=== PATIENT | male | born 1965 | race Two or more races ===

== ENCOUNTER 2019-12-08 11:55 | Inpatient (IN) | payer MEDICAID ==
[~2019-12-08] VITALS: Ht 175.3 cm; Wt 137.0 kg
[2019-12-08] VITALS (12 sets, daily range): BP systolic 91–205; BP diastolic 30–108
--- NOTE | 2019-12-08 11:55 | NUR ---
ED Nurse Note: Pt arrived with RA 26 due to SOB from snf, pt was on 15L NR saturating at 88%. Pt appears red and show signs of acute distress. IV line established patent and intact. Blood specimen collected. sent to lab.
--- NOTE | 2019-12-08 11:55 | NUR ---
ED Nurse Note: Pt given 10 of etomidate and 100 succ per ERMD. PT was intubated. RT at bedside
--- NOTE | 2019-12-08 11:56 | NUR ---
ED Nurse Note: Vent setting at 20 Rate, 650 Tv, 100 FiO2, peep of 5. 23 at lip; 8.0
--- NOTE | 2019-12-08 12:10 | NUR ---
ED Nurse Note: new Rodriguez inserted, patent and draining. pt has multiple wounds. one on left and right upper lateral thigh and perineal area. photos taken. wound care photo uploaded
--- NOTE | 2019-12-08 12:36 | NUR ---
ED Nurse Note: cre, vre, and mrsa swabs sent to lab.
--- NOTE | 2019-12-08 12:36 | NUR ---
ED Nurse Note: Pt was given 2 L normal saline per TO by VIDA
[2019-12-08 13:00] LABS: APPEARANCE,URINE CLOUDY; BILIRUBIN, URINE 1+ (NEGATIVE); COLOR,URINE BROWN; GLUCOSE, URINE (UA) 2+ (NEGATIVE); KETONES,URINE 3+ (NEGATIVE); LEUKOCYTE ESTERASE ,URINE 3+ (NEGATIVE); NITRITE,URINE NEGATIVE (NEGATIVE); PH,URINE 5 (4.5-8.0); PROTEIN,URINE 3+ (NEGATIVE); UROBILINOGEN,URINE 4 MG/DL (0.0-1.0)
[2019-12-08] MEDS ORDERED: Insulin Human Regular 100units/ml 3ml IV ONE (13:00)
[2019-12-08 13:02] LABS: HEMATOCRIT 50.5 % (42.0-52.0); HEMOGLOBIN 17.2 G/DL (14.2-18.0); MEAN CORPUSCULAR VOLUME 82 FL (80-99); PLATELET COUNT 299 K/UL (150-450); RED BLOOD COUNT 6.13 M/UL (4.70-6.10); RED CELL DISTRIBUTION WIDTH 13.2 % (11.6-14.8); WHITE BLOOD COUNT 18.2 K/UL (4.8-10.8)
[2019-12-08 13:09] LABS: ANION GAP 20 mmol/L (5-15); BLOOD UREA NITROGEN 23 mg/dL (7-18); CARBON DIOXIDE 19 MMOL/L (21-32); CHLORIDE 89 MMOL/L (98-107); CREATININE 2.3 MG/DL (0.55-1.30); POTASSIUM 5.3 MMOL/L (3.5-5.1); SODIUM 128 MMOL/L (136-145)
[2019-12-08] MEDS ORDERED: VITAMIN C500 M1 ORAL (13:09)
[2019-12-08] MEDS ORDERED: NEXIUM20 M1 ORAL (13:09)
[2019-12-08] MEDS ORDERED: MULTIVITAMINS1 EAC2 ORAL (13:09)
[2019-12-08] MEDS ORDERED: ELIQUIS2.5 MG PO (13:09)
[2019-12-08] MEDS ORDERED: ALLOPURINOL100 M1 ORAL (13:09)
[2019-12-08] MEDS ORDERED: SINGULAIR10 MG ORAL (13:09)
[2019-12-08] MEDS ORDERED: BISACODYL10 M1 RC (13:09)
[2019-12-08] MEDS ORDERED: MAGNESIUM CITR296 M1 PO (13:09)
[2019-12-08] MEDS ORDERED: BACLOFEN10 MG ORAL (13:09)
[2019-12-08] MEDS ORDERED: GABAPENTIN100 MG ORAL (13:21)
[2019-12-08 13:22] LABS: ALANINE AMINOTRANSFERASE 37 U/L (12-78); ALBUMIN 2.5 G/DL (3.4-5.0); ALBUMIN/GLOBULIN RATIO 0.4 (1.0-2.7); ALKALINE PHOSPHATASE 164 U/L (46-116); ASPARTATE AMINO TRANSFERASE 44 U/L (15-37); BILIRUBIN,TOTAL 0.6 MG/DL (0.2-1.0); CKMB 2.7 NG/ML (0.0-3.6); CREATINE KINASE 145 U/L (26-308)
[2019-12-08] MEDS ORDERED: cefTRIAXone 1 GM in NS 55 ML IVPB ONE (13:30)
[2019-12-08] MEDS ORDERED: Vancomycin 1.5gm/NS Premix 275 ML IVPB ONE (13:30)
[2019-12-08] MEDS ORDERED: Enoxaparin 120 mg inj SUBQ ONE (13:30)
--- NOTE | 2019-12-08 14:00 | NUR ---
ED Nurse Note: DARIANAD aware of pt BS of 355. waiting for further orders
--- NOTE | 2019-12-08 14:15 | NUR ---
ED Nurse Note: Informed ermd and RT that pt O2 sat sitting at 88% on mechanical ventilator
--- NOTE | 2019-12-08 14:20 | NUR ---
ED Nurse Note: Lactic acid reflex sent
--- NOTE | 2019-12-08 14:21 | NUR ---
ED Nurse Note: PEEP set to 10 by RT per ERMD order
--- NOTE | 2019-12-08 14:44 | Emergency Room Report ---
History of Present Illness General Chief Complaint: Dyspnea/Respdistress Source: EMS Present Illness HPI Patient presents from nursing facility with reports of shortness of breath Upon arrival the patient is in respiratory distress and impending failure Also appears cyanotic The history of present illness is significantly limited patient himself is nonverbal again in respiratory distress impending failure and required initial airway intubation upon arrival Unknown regarding the duration of illness unknown regarding fevers Patient is from nursing facility raising concern and question of covid-19 infection Allergies: Coded Allergies: No Known Allergies (Unverified , 12/08/19) COVID-19 Screening Contact w/high risk pt: Yes Recent Travel to affected area: No Experienced COVID-19 symptoms?: Yes COVID-19 symptoms experienced: Shortness of Breath COVID-19 Testing performed PERSONAL BANKING ASSISTANT: Yes COVID-19 Screening: Positive COVID-19 COVID-19 Testing Source: [facility] [facility] Patient History Limited by: medical condition Reviewed Nursing Documentation: PMH: Agreed; PSxH: Agreed Review of Systems All Other Systems: limited - Other than the ones mentioned in the history of present illness all others are reviewed however they do stay limited due to the patient's mental status Physical Exam Vital Signs Date Time Temp Pulse Resp B/P (MAP) Pulse Ox O2 Delivery O2 Flow Rate FiO2 12/08/19 11:50 97.5 132 35 205/108 (140) 87 Non-Rebreather 15.0 12/08/19 12:29 100 Sp02 EP Interpretation: reviewed, abnormal - 87% on nonrebreather which is a low oxygenation patient required airway intubation, 100% oxygenation is saturating at 98% which is normal General Appearance: severe distress - Tachypneic, respiratory failure cyanotic Head: normocephalic, atraumatic Eyes: bilateral eye PERRL, bilateral eye EOMI ENT: no angioedema, dry mucus membranes Neck: supple Respiratory: other - Retractions bilaterally decreased breath sounds, and respiratory failure Cardiovascular #1: tachycardia Gastrointestinal: other - Surgical scar noted in the lower abdomen patient present in extreme status and abdominal exam is difficult to obtain fullys however does not appear distended Musculoskeletal: other - Patient appears to be in critical status, appears to have lower extremity paralysis Neurologic: other - Some response to physical stimuli however presents in respiratory distress impending failure neurological exam is difficult to obtain Skin: other - Cyanotic Lymphatic: no adenopathy Procedures Critical Care Time Critical Care Time 70 minutes for multiple evaluations initial clinical presentation concerning for respiratory failure and possible not including any procedural time Intubation Intubation : Consent: Emergent Intubation Method: orotracheal Tube Size (cm): 8.5 Medications: Etomidate, Succinylcholine Breath Sounds after Intubation: equal Intubation Complications: no complications Attempts: One Patient Tolerated: Well Complications: None Medical Decision Making Diagnostic Impression: Primary Impression: Respiratory failure Additional Impressions: COVID-19 elevated toponin ER Course Patient is a fairly complex patient with multiple differential to consideration including but not limited to cardiac cardiopulmonary and vascular emergencies Given the patient's presentation and x-ray imaging Patient has high suspicion for covid-19 Broad-spectrum antibiotics initiated patient has airway intubation Performed Has significant electrolyte abnormalities being addressed Troponin level also elevated and patient was given Dose of Lovenox upon arrival and admitted to ICU in critical condition Labs Test 12/08/19 11:50 12/08/19 13:05 White Blood Count 18.2 K/UL (4.8-10.8) Red Blood Count 6.13 M/UL (4.70-6.10) Hemoglobin 17.2 G/DL (14.2-18.0) Hematocrit 50.5 % (42.0-52.0) Mean Corpuscular Volume 82 FL (80-99) Mean Corpuscular Hemoglobin 28.1 PG (27.0-31.0) Mean Corpuscular Hemoglobin Concent 34.1 G/DL (32.0-36.0) Red Cell Distribution Width 13.2 % (11.6-14.8) Platelet Count 299 K/UL (150-450) Mean Platelet Volume 5.7 FL (6.5-10.1) Neutrophils (%) (Auto) % (45.0-75.0) Lymphocytes (%) (Auto) % (20.0-45.0) Monocytes (%) (Auto) % (1.0-10.0) Eosinophils (%) (Auto) % (0.0-3.0) Basophils (%) (Auto) % (0.0-2.0) Differential Total Cells Counted 100 Neutrophils % (Manual) 86 % (45-75) Lymphocytes % (Manual) 6 % (20-45) Monocytes % (Manual) 8 % (1-10) Eosinophils % (Manual) 0 % (0-3) Basophils % (Manual) 0 % (0-2) Band Neutrophils 0 % (0-8) Platelet Estimate Adequate Platelet Morphology Normal Red Blood Cell Morphology Normal Prothrombin Time 11.4 SEC (9.30-11.50) Prothromb Time International Ratio 1.0 (0.9-1.1) Activated Partial Thromboplast Time 32 SEC (23-33) Urine Color Brown Urine Appearance Cloudy Urine pH 5 (4.5-8.0) Urine Specific [place] 1.025 (1.005-1.035) Urine Protein 3+ (NEGATIVE) Urine Glucose (UA) 2+ (NEGATIVE) Urine Ketones 3+ (NEGATIVE) Urine Blood 2+ (NEGATIVE) Urine Nitrite Negative (NEGATIVE) Urine Bilirubin 1+ (NEGATIVE) Urine Ictotest Negative (NEGATIVE) Urine Urobilinogen 4 MG/DL (0.0-1.0) Urine Leukocyte Esterase 3+ (NEGATIVE) Urine RBC 2-4 /HPF (0 - 0) Urine WBC 15-20 /HPF (0 - 0) Urine Squamous Epithelial Cells None /LPF (NONE/OCC) Urine Bacteria Many /HPF (NONE) Sodium Level 128 MMOL/L (136-145) Potassium Level 5.3 MMOL/L (3.5-5.1) Chloride Level 89 MMOL/L (98-107) Carbon Dioxide Level 19 MMOL/L (21-32) Anion Gap 20 mmol/L (5-15) Blood Urea Nitrogen 23 mg/dL (7-18) Creatinine 2.3 MG/DL (0.55-1.30) Estimat Glomerular Filtration Rate 30.0 mL/min (>60) Glucose Level 455 MG/DL (74-106) Lactic Acid Level 3.70 mmol/L (0.4-2.0) Calcium Level 9.0 MG/DL (8.5-10.1) Total Bilirubin 0.6 MG/DL (0.2-1.0) Aspartate Amino Transf (AST/SGOT) 44 U/L (15-37) Alanine Aminotransferase (ALT/SGPT) 37 U/L (12-78) Alkaline Phosphatase 164 U/L (46-116) Total Creatine Kinase 145 U/L (26-308) Creatine Kinase MB 2.7 NG/ML (0.0-3.6) Creatine Kinase MB Relative Index 1.8 Troponin I 0.213 ng/mL (0.000-0.056) Pro-B-Type Natriuretic Peptide 6155 pg/mL (0-125) Total Protein 8.5 G/DL (6.4-8.2) Albumin 2.5 G/DL (3.4-5.0) Globulin 6.0 g/dL Albumin/Globulin Ratio 0.4 (1.0-2.7) Lipase 125 U/L (73-393) Arterial Blood pH 7.183 (7.350-7.450) Arterial Blood Partial Pressure CO2 39.1 mmHg (35.0-45.0) Arterial Blood Partial Pressure O2 52.8 mmHg (75.0-100.0) Arterial Blood HCO3 14.4 mmol/L (22.0-26.0) Arterial Blood Oxygen Saturation 84.9 % (95-100) Arterial Blood Base Excess -13.2 (-2-2) Colby Test Positive Rhythm Strip Diag. Results EP Interpretation: yes Rate: 120 Rhythm: no PVC's, no ectopy, other - Sinus tach Chest X-Ray Diagnostic Results Chest X-Ray Diagnostic Results : Chest X-Ray Ordered: Yes # of Views/Limited/Complete: 1 View Indication: Shortness of Breath EP Interpretation: Yes Interpretation: no pneumothorax, other - ET tube appropriate position, bilateral infiltrates, bilateral small effusions Impression: Other - Bilateral patchy infiltrate Electronically Signed by: Jose Eduardo Nuñez DO Last Vital Signs Date Time Temp Pulse Resp B/P (MAP) Pulse Ox O2 Delivery O2 Flow Rate FiO2 12/08/19 12:29 97.9 118 20 112/56 94 Mechanical Ventilator 15.0 100 Status: improved Disposition: ADMITTED INPATIENT Condition: Critical Referrals: ANYA CHRISTIAN (PCP) Jose Eduardo Nuñez DO Dec 08, 2019 14:44
--- NOTE | 2019-12-08 14:55 | NUR ---
ED Nurse Note: Pt began fighting vent, pt placed on diprivan per ermd
--- NOTE | 2019-12-08 15:00 | NUR ---
ED Nurse Note: informed ermd of pt low BP. pt started on levophed. Addendum: 12/08/19 at 1552 by PDELEON ED Nurse Note: informed ermd of pt low BP. pt started on levophed. please view iv spreadsheet
--- NOTE | 2019-12-08 15:05 | NUR ---
ED Nurse Note: Pt was suctioned
[2019-12-08] MEDS: propofoL 1,000mg/100ml 100 ML IV SCH (15:13)
--- NOTE | 2019-12-08 15:53 | NUR ---
ED Nurse Note: Pt began fighting vent, pt placed on diprivan per ermd. please view iv spread sheet
[2019-12-08] MEDS ORDERED: Albuterol/Ipratropium 3ml neb IN-LINE ONE (16:15)
--- NOTE | 2019-12-08 16:27 | Diagnostic Imaging Report ---
Indication: Chest pain Technique: One view of the chest Comparison: none Findings: There is an endotracheal tube in place, tip projecting approximately 7 cm above the sadia in good position. Extensive bilateral infiltrates versus edema, left greater than right, are noted. Atelectatic bands are seen at the right lung base. No definite effusions Less is difficult to assess, possibly enlarged. Impression: Satisfactory endotracheal intubation Extensive bilateral infiltrates versus edema, left greater than right Right basilar atelectatic changes
--- NOTE | 2019-12-08 16:44 | NUR ---
ED Nurse Note: RT at bedside giving breathing treatment
--- NOTE | 2019-12-08 18:40 | NUR ---
ED Nurse Note: called dr. rojo informed him of pt saturation of 84% on mechanical vent with peep of 5 and FiO2 of 100%.
--- NOTE | 2019-12-08 18:41 | NUR ---
ED Nurse Note: RT obtained ABG repeat per dr. rojo
--- NOTE | 2019-12-08 18:44 | NUR ---
ED Nurse Note: called XRAY for stat chest xray per dr. alia CAPPS.
--- NOTE | 2019-12-08 18:55 | NUR ---
ED Nurse Note: Tidal volume increased to [address] rojo verbal order. dr. rojo at bedside
--- NOTE | 2019-12-08 19:00 | NUR ---
RESPIRATORY NOTE: Patient recently intubated with an 8.0 ETT at 22cm at the lip. Received pt on vent of AC 20 Vt 700 FiO2 100% Peep of 10. Patient saturation of oxygen ranges between 85-90%. Ambu bag by bedside. Will continue to monitor patient throughout the night.
--- NOTE | 2019-12-08 19:05 | NUR ---
HAND-OFF: Report given to RACHELL Saldaña.
--- NOTE | 2019-12-08 19:10 | NUR ---
ED Nurse Note: Report received from RACHELL Torres. Pt appears restless and is fighting the vent. Will titrate propofol to meet ordered MARQUES score. See vitals sign flow sheet.
--- NOTE | 2019-12-08 19:51 | Diagnostic Imaging Report ---
EXAM: XR Chest, 1 View CLINICAL HISTORY: ABN CHST TECHNIQUE: Frontal view of the chest. COMPARISON: 12/08/19 exam performed at 14 hours. FINDINGS: See Impression. IMPRESSION: 1. Stable endotracheal tube from the exam earlier today (in a satisfactory position). 2. Stable bilateral airspace disease left more dense and confluent than right and involving the upper lobe and lower lobe. 3. No worsening cardiopulmonary disease to include absence of interval pneumothorax. 4. No other significant interval changes.
--- NOTE | 2019-12-08 20:05 | NUR ---
ED Nurse Note: Pt still presents restless, propofol increased to 25 mcg/kg/min at this time. Pt BP is holding above 90 systolic with levophed running at 22mcg/min. Will continue to closely monitor pt.
--- NOTE | 2019-12-08 20:45 | NUR ---
ED Nurse Note: Pt appears more comfortable at this time and is not bucking the vent. Pt oxygen saturation has also improved and is holding at around 88% oxygen sat on mechanical vent. See vitals flow sheet.
--- NOTE | 2019-12-08 21:25 | NUR ---
Phoenix Portillo in ICU-mortuary is picking up patient at this time. Bed is not clean yet to receive ER patient.
[2019-12-08] MEDS: Piperacillin/Tazobactam 3.375 GM in NS 110 ML IVPB SCH (21:49)
--- NOTE | 2019-12-08 22:00 | NUR ---
ED Nurse Note: Pt vital signs are remaining consistent at this time, see vitals flow sheet. No change in titration on drips. Pt appears comfortable, NAD. Will continue to montior. No new orders.
--- NOTE | 2019-12-08 22:25 | NUR ---
ED Nurse Note: Spoke with ICU, per RN bed is not ready yet for pt to be transferred to unit.
--- NOTE | 2019-12-08 23:15 | NUR ---
ED Nurse Note: Pt became diaphoretic and is hot to the touch. Pt temp taken and is 102.4F. ERMD aware, will carry out order for tylenol.
[2019-12-08] MEDS: Acetaminophen 650 MG SUPP RECTAL PRN (23:29)
--- NOTE | 2019-12-08 23:50 | NUR ---
ED Nurse Note: Pt repositioned at this time.
[2019-12-09] VITALS (73 sets, daily range): BP systolic 55–123; BP diastolic 27–73
--- NOTE | 2019-12-09 00:10 | NUR ---
ED Nurse Note: Report given to RACHELL Suero.
--- NOTE | 2019-12-09 00:15 | Consultation ---
DATE OF CONSULTATION: 12/08/2019 CRITICAL CARE NOTE CONSULTING PHYSICIAN: Owen Tian MD. REASON FOR CONSULTATION: Respiratory failure, ventilator management. HISTORY OF PRESENT ILLNESS: Patient is a 54-year-old male, brought in from the retirement. Patient was noted to be significant shortness of breath, saturating 88% on 15 liter mask. Patient subsequently required intubation and now is hypotensive. The patient now awaiting a bed in the ICU. Ventilator setting with AC rate of 20. All gases reviewed. The patient also with multiple wounds with some drainage noted. PAST MEDICAL HISTORY: Notable for hyperuricemia, possible neuropathy. Merely history is difficult to fully obtain. PHYSICAL EXAMINATION: GENERAL: Ill-appearing male. Patient is on a ventilator. VITAL SIGNS: Heart rate of 109, blood pressure 112/67. Remainder of the exam deferred to the possible COVID. IMPRESSION: Respiratory failure, leukocytosis, profound hypoxemia, hyponatremia, hyperkalemia, renal failure, elevated troponin, possible non-STEMI, significant acidemia, metabolic in origin. RECOMMENDATIONS: Supportive care. Hyperventilate. Empiric antibiotics. IV hydration. Monitor electrolytes. Monitor potassium. Pressors as needed. Obtain culture and follow up exam. Anticoagulation. Rodriguez. Await admission to ICU. Owen Tian M.D. DR: ROULA JOB#: [id number] CC: FLORESITA
--- NOTE | 2019-12-09 00:25 | NUR ---
ED Nurse Note: Pt temp is trending down, currently 99.9F.
--- NOTE | 2019-12-09 00:25 | NUR ---
ED Nurse Note: Pt transferred to ICU at this time via gurney, connected to night monitor with RN, tech and RT. Pt remains on propofol at 25mcg/kg/min and levophed at 22mcg/min along with NS maintence fluid and antibiotic infusing. Pt IV/femoral line is patent and intact. Pt becomes restless when moved from gurney to ICU bed. Receiving RN made aware of pt trend in vitals and that Dr. Butt was bedside around 1900 yesterday and saw pt and is aware of pt vitals/vent settings. ISO precuations taken. See vitals flow sheet. No complications with transfer to unit.
--- NOTE | 2019-12-09 00:34 | NUR ---
NURSE NOTES: RECEIVED PATIENT FROM ER NURSE DENIZ. PATIENT OPEN EYES, ON ETT TO VENT AC20/TV700/FIO2 100%/PEEP 10, O2 SATURATION 83% NOTED, HR 110'S/MIN ST, ABDOMEN NON TENDER ROUND, NO BM STATUS, F/C INTACT AND PATENT, DARK YELLOW URINE OUTED, TLC TO RIGHT FEMORAL AND PPL TO RIGHT AC, INTACT AND PATENT, ONGOING DIPRIVAN 25MCG/KG/MIN, LEVOPHED 22MCG/MIN AND IV FLUID NS AT 125ML/HR VIA TLC, WOUND TO RIGHT HIP, LEFT POSTERIOR THIGH, REDNESS TO PERINEAL AREA AND LEFT FOOT, MADE LOWER BED POSITION, ON BED ALARM AND LOCKED, WILL CONTINUE TO MONITOR.
[2019-12-09] MEDS: propofoL 1,000mg/100ml 100 ML IV SCH ×4 (00:44→10:03)
--- NOTE | 2019-12-09 00:50 | NUR ---
NURSE NOTES: LE: TEMP 101.9F NOTED, COOLING MEASURE WAS DONE.
--- NOTE | 2019-12-09 02:21 | NUR ---
NURSE NOTES: PATIENT LETHARGIC, ONGOING LEVOPHED 30MCG/MIN AND DIPRIVAN 20MCG/KG/MIN VIA TLC, BP 99/42MMHG NOTED AT THIS TIME, WILL CONTINUE PLAN OF CARE.
--- NOTE | 2019-12-09 02:45 | History and Physical Report ---
DATE OF ADMISSION: 12/08/2019 REASON FOR ADMISSION: Respiratory failure and shock. HISTORY OF PRESENT ILLNESS: This is a 54-year-old male, who resides at a care home facility. He presented to the emergency room with shortness of breath. He apparently has had cough and congestion. There are several patients with COVID-19 at the facility where he resides. In the emergency room, his initial blood pressure was 205/108, heart rate 132, respiratory rate 35, he was afebrile. He was a non-rebreather mask and saturating poorly. He ultimately was intubated and placed on mechanical ventilation. He has required 100% FiO2. Subsequently, his oxygen saturations have dropped even on that delivery of oxygen by mechanical ventilator and he has become increasingly hypotensive. He has required initiation of pressors despite IV fluid boluses. PAST MEDICAL HISTORY: Includes history of hypoxia, paraplegia, type 2 diabetes mellitus, COVID-19 infection. ALLERGIES: None known. MEDICATIONS: Reviewed. SOCIAL HISTORY: Negative for smoking or substance abuse. No alcohol use. In the past, he worked at a [employer]. PHYSICAL EXAMINATION: GENERAL: Sedated. Moderately obese. LUNGS: Bilateral breath sounds with rhonchi. CARDIAC: Regular rhythm and rate. Normal S1, S2. ABDOMEN: Soft. EXTREMITIES: Trace edema. VITAL SIGNS: Blood pressure 95/57, heart rate 120, respiratory 25. Chest x-ray reveals bilateral interstitial infiltrates. LABORATORY DATA: White count 18, hemoglobin 17. ABG 7.16, 34, 51. Sodium 128, potassium 5.3, chloride 89, lactic acid 3.7, BUN 23, creatinine 2.3, glucose 455. Pro natriuretic peptide 6100. Troponin 0.21. IMPRESSION: 1. Respiratory failure. 2. COVID-19 pneumonia suspected with ARDS. 3. Sepsis. 4. Shock. 5. Paraplegia. 6. Type 2 diabetes with hyperglycemia. 7. Hyponatremia. 8. Hyperkalemia. 9. Acute on chronic renal failure. 10. Lactic acidosis. 11. Acute myocardial ischemia. 12. Acute diastolic congestive heart failure. 13. Severe protein-calorie malnutrition. 14. Critical and guarded. PLAN: 1. Pressors. 2. Volume support. 3. Ventilator support. 4. Insulin coverage by sliding scale. 5. Full anticoagulation initiated in the setting of COVID ARDS. Julio Sidra Butt DR: ANAND JOB#: [id number] CC:
--- NOTE | 2019-12-09 04:30 | NUR ---
NURSE NOTES: MORNING CARE WAS DONE, NO BM STATUS, ONGOING DIPRIVAN 30MCG/KG/MIN, LEVOPHED 30MCG/MIN AND NS AT 125ML/HR VIA TLC. Addendum: 12/09/19 at 0744 by ISABEL AHN RN WRONG DOCUMENT. NURSE NOTES: MORNING CARE WAS DONE, NO BM STATUS, ONGOING LEVOPHED 30MCG/MIN AND NS AT 125ML/HR VIA TLC.
[2019-12-09] MEDS: Piperacillin/Tazobactam 3.375 GM in NS 110 ML IVPB SCH ×3 (05:41→21:33)
--- NOTE | 2019-12-09 06:10 | NUR ---
NURSE NOTES: BS 488MG/DL NOTED, CALLED DR. BELL THAT RECEIVED NEW ORDER FROM DR. DIAZ, WILL CARRY OUT.
[2019-12-09] MEDS ORDERED: NovoLOG Insulin Flexpen SUBQ SCH ×3 (06:30)
--- NOTE | 2019-12-09 07:15 | NUR ---
HAND-OFF: Report given to Sharmila GASTELUM RN.
--- NOTE | 2019-12-09 07:16 | NUR ---
NURSE NOTES: Received patient from RACHELL Suero. Patient blood pressure 104/56 on levophed at 30mcg/min at this time. Patient RASS -3 on propofol at 30mcg/kg/hr. Will continue to monitor and titrate per protocol. Patient HR elevated at 115 at this time. Patient orally intubated with ET tube 8.0 with 23cm at the lip line. Ventilator setting AC 20, tidal volume 700, fiO2 100%, and PEEP 10. Spo2 low at 87% at this time. Will order stat ABG at this time and notify MD of result. Patient has NGT of the right nares that is patent, asymptomatic, clamped at this time. Patient has farah for urine retention that is patent, asymptomatic, and draining small amount of dark duong urine at this time. Patient has sacral redness, right hip wound, thigh wound, and left foot/scrotal redness. Will order low air loss mattress. Will continue to monitor and turn patient every two hours. Patient has right AC 20 gauge peripheral IV and right femoral triple lumen catheter. Both patent, asymptomatic, with dressing dry and intact. Right femoral TLC running propofol at 30mcg/kg/hr, normal saline at 125mL/hr, and levophed at 30mcg/min. Patient has fever of 100 at this time. Will continue to monitor. Cooling measures in place. Patient bed in low position with bed alarm on and call light in reach. Patient repositioned and oral care performed.
[2019-12-09 07:20] LABS: HEMATOCRIT 47.1 % (42.0-52.0); MEAN CORPUSCULAR VOLUME 83 FL (80-99); PLATELET COUNT 322 K/UL (150-450); RED BLOOD COUNT 5.67 M/UL (4.70-6.10); RED CELL DISTRIBUTION WIDTH 13.4 % (11.6-14.8); WHITE BLOOD COUNT 20.6 K/UL (4.8-10.8)
[2019-12-09 07:52] LABS: ALANINE AMINOTRANSFERASE 28 U/L (12-78); ALBUMIN 1.7 G/DL (3.4-5.0); ALBUMIN/GLOBULIN RATIO 0.4 (1.0-2.7); ALKALINE PHOSPHATASE 139 U/L (46-116); ANION GAP 19 mmol/L (5-15); ASPARTATE AMINO TRANSFERASE 58 U/L (15-37); BILIRUBIN,TOTAL 0.7 MG/DL (0.2-1.0); BLOOD UREA NITROGEN 29 mg/dL (7-18); CALCIUM 7.4 MG/DL (8.5-10.1); CARBON DIOXIDE 14 MMOL/L (21-32); CHLORIDE 98 MMOL/L (98-107); CREATININE 2.8 MG/DL (0.55-1.30); POTASSIUM 4.2 MMOL/L (3.5-5.1); SODIUM 131 MMOL/L (136-145)
--- NOTE | 2019-12-09 08:15 | NUR ---
NURSE NOTES: Notified Dr gomez via telephone message regarding ABG result from this morning. Awaiting call back.
--- NOTE | 2019-12-09 08:20 | Critical Care Progress Note ---
Assessment/Plan Assessment/Plan IMPRESSION: Respiratory failure, leukocytosis, profound hypoxemia, hyponatremia, hyperkalemia, renal failure, elevated troponin, possible non-STEMI, significant acidemia, metabolic in origin. possible DKA. hypotension possible ARDS. possible COVID PLAN hypervent bicarb insulin drip iv antibiotics support as able follow up cultures and labs ID eval recommended very ill and critical medications/laboratory data/nursing notes/ICU care reviewed in detail note reviewed and edited care discussed with RN and RT ICU time spent >40 minutes Critical Care - Subjective Interval Events: doing poorly on vent acidotic high sugars ROS Limited/Unobtainable: Yes Condition: critical EKG Rhythm: Sinus Tachycardia I&O: Intake and Output 12/08/19 12/09/19 19:00 07:00 Intake Total 4917.943 ml 1859.458 ml Output Total 85 ml Balance 4917.943 ml 1774.458 ml Intake IV Total 4917.943 ml 1859.458 ml Output Urine Total 85 ml # Voids 1 Critical Care - Objective ET-Tube: 8.0 ET Position: 23 Last 24 Hour Vital Signs Date Time Temp Pulse Resp B/P (MAP) Pulse Ox O2 Delivery O2 Flow Rate FiO2 12/09/19 07:00 115 30 104/56 (72) 85 12/09/19 07:00 16 104/56 Mechanical Ventilator 100 12/09/19 06:45 114 29 101/57 (72) 85 12/09/19 06:30 114 26 12/09/19 06:30 114 26 98/54 (69) 86 12/09/19 06:18 30 106/58 Mechanical Ventilator 100 12/09/19 06:15 116 28 114/56 (75) 86 12/09/19 06:00 113 29 106/58 (74) 86 12/09/19 05:45 112 30 98/49 (65) 87 12/09/19 05:30 111 29 101/49 (66) 87 12/09/19 05:15 112 28 98/54 (69) 87 12/09/19 05:00 111 29 97/54 (68) 87 12/09/19 04:45 111 29 107/49 (68) 89 12/09/19 04:30 112 25 110/50 (70) 89 12/09/19 04:15 113 26 106/50 (68) 89 12/09/19 04:04 97/49 12/09/19 04:00 99.9 112 27 97/49 (65) 89 12/09/19 04:00 97/49 12/09/19 04:00 27 97/49 Mechanical Ventilator 100 12/09/19 04:00 Mechanical Ventilator 12/09/19 03:45 28 98/48 Mechanical Ventilator 100 12/09/19 03:45 112 28 98/48 (65) 88 12/09/19 03:30 112 28 104/51 (68) 88 12/09/19 03:29 112 28 100 12/09/19 03:15 111 27 100/53 (69) 88 12/09/19 03:09 112 12/09/19 03:00 111 26 106/44 (64) 12/09/19 03:00 106/44 12/09/19 03:00 26 106/44 Mechanical Ventilator 100 12/09/19 02:30 111 25 103/42 (62) 12/09/19 02:00 112 26 93/45 (61) 12/09/19 02:00 93/45 12/09/19 02:00 27 93/45 Mechanical Ventilator 100 12/09/19 01:49 65/27 12/09/19 01:45 101.7 116 27 65/27 (40) 86 12/09/19 01:31 100 12/09/19 01:31 Mechanical Ventilator 7.0 12/09/19 01:30 117 26 87/46 (60) 89 12/09/19 01:30 87/46 12/09/19 01:15 116 27 85/46 (59) 12/09/19 01:15 85/46 12/09/19 01:00 116 27 95/49 (64) 89 12/09/19 01:00 95/49 12/09/19 01:00 26 95/49 Mechanical Ventilator 100 12/09/19 00:45 121 28 90/49 (63) 87 12/09/19 00:44 24 110/61 100 12/09/19 00:30 101.9 124 26 110/62 (78) 86 12/09/19 00:25 99.9 118 30 104/54 86 Mechanical Ventilator 7.0 100 12/09/19 00:00 102.4 119 30 110/61 87 Mechanical Ventilator 7.0 100 12/08/19 23:15 102.4 120 25 93/49 88 Mechanical Ventilator 7.0 100 12/08/19 23:02 105/47 6 22:45 119 25 100 12/08/19 22:00 98.5 120 25 91/53 89 Mechanical Ventilator 7.0 100 12/08/19 21:15 98.5 119 24 97/52 89 Mechanical Ventilator 7.0 100 12/08/19 20:45 98.5 120 25 95/57 88 Mechanical Ventilator 7.0 100 12/08/19 20:20 98.5 126 30 95/59 86 Mechanical Ventilator 7.0 100 12/08/19 20:05 29 99/66 Mechanical Ventilator 100 12/08/19 19:57 90/54 12/08/19 19:34 119 32 100 12/08/19 19:20 99/45 12/08/19 19:20 31 99/45 Mechanical Ventilator 100 12/08/19 19:15 98.2 124 31 99/45 83 Mechanical Ventilator 7.0 100 12/08/19 18:56 7.0 100 12/08/19 18:35 98/40 12/08/19 18:35 98.2 120 32 118/53 84 Mechanical Ventilator 7.0 100 12/08/19 18:30 133/108 12/08/19 17:30 99/59 12/08/19 17:25 98.2 108 27 115/30 87 Mechanical Ventilator 7.0 100 12/08/19 17:25 115/30 12/08/19 17:00 28 107/72 Mechanical Ventilator 15.0 100 12/08/19 16:50 105 20 90 Mechanical Ventilator 7.0 100 107 20 89 12/08/19 16:30 108 25 104/43 88 Mechanical Ventilator 15.0 100 12/08/19 16:25 111/52 12/08/19 16:20 94/58 6 16:15 99/65 12/08/19 16:10 96/47 12/08/19 16:05 102/49 12/08/19 16:00 30 128/55 Mechanical Ventilator 15.0 90 12/08/19 15:55 99/65 12/08/19 15:45 24 135/63 Mechanical Ventilator 15.0 100 12/08/19 15:40 114/76 12/08/19 15:30 21 112/50 Mechanical Ventilator 15.0 100 12/08/19 15:28 97.9 109 23 112/67 91 Mechanical Ventilator 15.0 100 12/08/19 15:25 112/67 12/08/19 15:13 23 106/55 Mechanical Ventilator 15.0 100 12/08/19 15:11 106/55 12/08/19 14:21 15.0 100 12/08/19 12:29 97.9 118 20 112/56 94 Mechanical Ventilator 15.0 100 12/08/19 12:15 130 20 82 Mechanical Ventilator 100 12/08/19 11:55 97.5 134 35 205/108 87 Non-Rebreather 15.0 12/08/19 11:55 130 20 100 12/08/19 11:55 133 35 Non-Rebreather 15.0 12/08/19 11:50 97.5 132 35 205/108 (140) 87 Non-Rebreather 15.0 Labs: Laboratory Tests Test 12/08/19 11:50 12/08/19 13:05 12/08/19 14:06 12/08/19 18:40 White Blood Count 18.2 K/UL (4.8-10.8) H Red Blood Count 6.13 M/UL (4.70-6.10) H Hemoglobin 17.2 G/DL (14.2-18.0) Hematocrit 50.5 % (42.0-52.0) Mean Corpuscular Volume 82 FL (80-99) Mean Corpuscular Hemoglobin 28.1 PG (27.0-31.0) Mean Corpuscular Hemoglobin Concent 34.1 G/DL (32.0-36.0) Red Cell Distribution Width 13.2 % (11.6-14.8) Platelet Count 299 K/UL (150-450) Mean Platelet Volume 5.7 FL (6.5-10.1) L Neutrophils (%) (Auto) % (45.0-75.0) Lymphocytes (%) (Auto) % (20.0-45.0) Monocytes (%) (Auto) % (1.0-10.0) Eosinophils (%) (Auto) % (0.0-3.0) Basophils (%) (Auto) % (0.0-2.0) Differential Total Cells Counted 100 Neutrophils % (Manual) 86 % (45-75) H Lymphocytes % (Manual) 6 % (20-45) L Monocytes % (Manual) 8 % (1-10) Eosinophils % (Manual) 0 % (0-3) Basophils % (Manual) 0 % (0-2) Band Neutrophils 0 % (0-8) Platelet Estimate Adequate Platelet Morphology Normal Red Blood Cell Morphology Normal Prothrombin Time 11.4 SEC (9.30-11.50) Prothromb Time International Ratio 1.0 (0.9-1.1) Activated Partial Thromboplast Time 32 SEC (23-33) Urine Color Brown Urine Appearance Cloudy Urine pH 5 (4.5-8.0) Urine Specific [place] 1.025 (1.005-1.035) Urine Protein 3+ (NEGATIVE) H Urine Glucose (UA) 2+ (NEGATIVE) H Urine Ketones 3+ (NEGATIVE) H Urine Blood 2+ (NEGATIVE) H Urine Nitrite Negative (NEGATIVE) Urine Bilirubin 1+ (NEGATIVE) H Urine Ictotest Negative (NEGATIVE) Urine Urobilinogen 4 MG/DL (0.0-1.0) H Urine Leukocyte Esterase 3+ (NEGATIVE) H Urine RBC 2-4 /HPF (0 - 0) H Urine WBC 15-20 /HPF (0 - 0) H Urine Squamous Epithelial Cells None /LPF (NONE/OCC) Urine Bacteria Many /HPF (NONE) H Sodium Level 128 MMOL/L (136-145) L Potassium Level 5.3 MMOL/L (3.5-5.1) H Chloride Level 89 MMOL/L (98-107) L Carbon Dioxide Level 19 MMOL/L (21-32) L Anion Gap 20 mmol/L (5-15) H Blood Urea Nitrogen 23 mg/dL (7-18) H Creatinine 2.3 MG/DL (0.55-1.30) H Estimat Glomerular Filtration Rate 30.0 mL/min (>60) Glucose Level 455 MG/DL (74-106) H Lactic Acid Level 3.70 mmol/L (0.4-2.0) H 2.00 mmol/L (0.66-2.22) Calcium Level 9.0 MG/DL (8.5-10.1) Total Bilirubin 0.6 MG/DL (0.2-1.0) Aspartate Amino Transf (AST/SGOT) 44 U/L (15-37) H Alanine Aminotransferase (ALT/SGPT) 37 U/L (12-78) Alkaline Phosphatase 164 U/L (46-116) H Total Creatine Kinase 145 U/L (26-308) Creatine Kinase MB 2.7 NG/ML (0.0-3.6) Creatine Kinase MB Relative Index 1.8 Troponin I 0.213 ng/mL (0.000-0.056) Pro-B-Type Natriuretic Peptide 6155 pg/mL (0-125) H Total Protein 8.5 G/DL (6.4-8.2) H Albumin 2.5 G/DL (3.4-5.0) L Globulin 6.0 g/dL Albumin/Globulin Ratio 0.4 (1.0-2.7) L Triglycerides Level 214 MG/DL (30-150) H Lipase 125 U/L (73-393) Arterial Blood pH 7.183 (7.350-7.450) 7.162 (7.350-7.450) Arterial Blood Partial Pressure CO2 39.1 mmHg (35.0-45.0) 33.8 mmHg (35.0-45.0) L Arterial Blood Partial Pressure O2 52.8 mmHg (75.0-100.0) L 51.2 mmHg (75.0-100.0) L Arterial Blood HCO3 14.4 mmol/L (22.0-26.0) *L 11.8 mmol/L (22.0-26.0) *L Arterial Blood Oxygen Saturation 84.9 % (95-100) *L 83.2 % (95-100) *L Arterial Blood Base Excess -13.2 (-2-2) *L -15.7 (-2-2) *L Colby Test Positive Positive Test 12/09/19 06:40 12/09/19 07:57 White Blood Count 20.6 K/UL (4.8-10.8) H Red Blood Count 5.67 M/UL (4.70-6.10) Hemoglobin 16.0 G/DL (14.2-18.0) Hematocrit 47.1 % (42.0-52.0) Mean Corpuscular Volume 83 FL (80-99) Mean Corpuscular Hemoglobin 28.3 PG (27.0-31.0) Mean Corpuscular Hemoglobin Concent 34.0 G/DL (32.0-36.0) Red Cell Distribution Width 13.4 % (11.6-14.8) Platelet Count 322 K/UL (150-450) Mean Platelet Volume 6.3 FL (6.5-10.1) L Neutrophils (%) (Auto) % (45.0-75.0) Lymphocytes (%) (Auto) % (20.0-45.0) Monocytes (%) (Auto) % (1.0-10.0) Eosinophils (%) (Auto) % (0.0-3.0) Basophils (%) (Auto) % (0.0-2.0) Neutrophils % (Manual) Pending Lymphocytes % (Manual) Pending Platelet Estimate Pending Platelet Morphology Pending Sodium Level 131 MMOL/L (136-145) L Potassium Level 4.2 MMOL/L (3.5-5.1) Chloride Level 98 MMOL/L (98-107) Carbon Dioxide Level 14 MMOL/L (21-32) L Anion Gap 19 mmol/L (5-15) H Blood Urea Nitrogen 29 mg/dL (7-18) H Creatinine 2.8 MG/DL (0.55-1.30) H Estimat Glomerular Filtration Rate 23.9 mL/min (>60) Glucose Level 531 MG/DL (74-106) *H Hemoglobin A1c Pending Calcium Level 7.4 MG/DL (8.5-10.1) L Magnesium Level 1.5 MG/DL (1.8-2.4) L Total Bilirubin 0.7 MG/DL (0.2-1.0) Aspartate Amino Transf (AST/SGOT) 58 U/L (15-37) H Alanine Aminotransferase (ALT/SGPT) 28 U/L (12-78) Alkaline Phosphatase 139 U/L (46-116) H Troponin I Pending Pro-B-Type Natriuretic Peptide 60015 pg/mL (0-125) H Total Protein 6.5 G/DL (6.4-8.2) Albumin 1.7 G/DL (3.4-5.0) L Globulin 4.8 g/dL Albumin/Globulin Ratio 0.4 (1.0-2.7) L Triglycerides Level Pending Random Vancomycin Level 11.1 ug/mL Arterial Blood pH 7.166 (7.350-7.450) Arterial Blood Partial Pressure CO2 40.1 mmHg (35.0-45.0) Arterial Blood Partial Pressure O2 49.3 mmHg (75.0-100.0) Arterial Blood HCO3 14.2 mmol/L (22.0-26.0) *L Arterial Blood Oxygen Saturation 83.8 % (95-100) *L Arterial Blood Base Excess -13.8 (-2-2) *L Colby Test Positive Objective: deferred due to possible COVID Micro: Microbiology Date/Time Source Procedure Growth Status 12/08/19 11:50 Urine,Clean Catch Urine Culture - Preliminary Gram Negative Marcel Resulted 12/08/19 11:50 Rectum Received Accucheck: 488 Owen Tian MD Dec 09, 2019 08:20
--- NOTE | 2019-12-09 08:20 | NUR ---
NURSE NOTES: Received call back from Dr Tian. Received telephone order for ventilator setting change to AC 28, TV 650, and PEEP 15; 2 amp bicarbonate IV now; and repeat ABG in 30 min. Addendum: 12/09/19 at 0822 by Carolina Lindsay RN Order read back, verified, and placed.
[2019-12-09] MEDS ORDERED: Sodium Bicarbonate 50ml Carp IV SCH (08:30)
[2019-12-09] MEDS: Enoxaparin 60mg Inj SUBQ SCH ×2 (08:40→20:59)
[2019-12-09] MEDS ORDERED: Vancomycin 1.25gm/NS Premix q24h IVPB SCH (09:00)
--- NOTE | 2019-12-09 09:38 | NUR ---
RADIOLOGY DEPT., ABDOMEN X-RAY FOR NGT PERFORMED.-P.DYE
--- NOTE | 2019-12-09 09:57 | Diagnostic Imaging Report ---
EXAM: XR Abdomen, 1 view CLINICAL HISTORY: NGT TECHNIQUE: Frontal view of the upper abdomen. COMPARISON: No relevant prior studies available. FINDINGS/IMPRESSION: Tip and sidehole of the enteric tube project within the stomach
[2019-12-09] MEDS: Acetaminophen 650 MG SUPP RECTAL PRN ×2 (10:48→16:13)
--- NOTE | 2019-12-09 11:25 | NUR ---
NURSE NOTES: Reported new ABG result to Dr Tian via telephone call at 1045. Received order to repeat ABG in AM. Notified Dr Tian that patient triglyceride level 263 this morning. Received telephone order to change sedation from propofol to versed. Order read back, verified, and placed.
[2019-12-09] MEDS: NovoLOG Insulin Flexpen SUBQ SCH ×3 (12:25→20:58)
--- NOTE | 2019-12-09 12:30 | NUR ---
NURSE NOTES: Blood pressure 81/51 on levophed at 30mcg/min at this time. Patient RASS -2. Propofol discontinued at this time. versed initiated at 5mcg/hr. Will continue to monitor and titrate per protocol. Sinus tachycardia on the wall mirror department supervisor. Patient remains orally intubated with ventilator setting AC 28, tidal volume 650, fiO2 100%, and PEEP 15. patient tolerating setting with SpO2 91% and RR 30. NGT remains patent, asymptomatic, and clamped at this time. Rodriguez remains patent, asymptomatic, and draining small amount of dark duong urine at this time. All wound dressing dry and intact. Will continue to monitor and turn patient every two hours. Right AC 20 gauge peripheral IV and right femoral triple lumen catheter both patent, asymptomatic, with dressing dry and intact. Right femoral TLC running versed, normal saline at 125mL/hr, and levophed at 30mcg/min. Patient has fever of 102.8 at this time. Will continue to monitor. Cooling measures remain in place. Rectal Tylenol given. Patient bed in low position with bed alarm on and call light in reach. Patient repositioned and oral care performed.
[2019-12-09] MEDS ORDERED: Levophed 4mg/4mL Inj IV ONE (13:30)
[2019-12-09] MEDS: Norepinephrine Bitartrate 16 MG in NS 500 ML IV SCH ×2 (13:39→22:49)
--- NOTE | 2019-12-09 14:00 | NUR ---
NURSE NOTES: Blood pressure 87/39 on levophed at 30mcg/min. Versed turned off as patient not responding to physical or verbal stimuli at this time. Patient tolerating ventilator setting with SpO2 92% and RR 29. Will continue to monitor. Patient continues to have fever of 102.8. Unable to order cooling blanket at this time. Cooling measures remain in place. Tylenol will be given per order when possible. Patient repositioned.
--- NOTE | 2019-12-09 16:00 | NUR ---
NURSE NOTES: Blood pressure 91/58 on levophed at 30mcg/min at this time. Patient RASS -3. Sedation turned off at this time. Will continue to monitor. Sinus tachycardia on the nuclear monitoring technician. Patient remains orally intubated with ventilator setting AC 28, tidal volume 650, fiO2 100%, and PEEP 15. patient tolerating setting with SpO2 93% and RR 31. NGT remains patent, asymptomatic, and clamped at this time. Rodriguez remains patent, asymptomatic, and draining small amount of dark duong urine at this time. All wound dressing dry and intact. Will continue to monitor and turn patient every two hours. Right AC 20 gauge peripheral IV and right femoral triple lumen catheter both patent, asymptomatic, with dressing dry and intact. Right femoral TLC normal saline at 125mL/hr, and levophed at 30mcg/min. Patient has fever of 102.8 at this time. Will continue to monitor. Cooling measures remain in place. Rectal Tylenol will be given when possible. Patient bed in low position with bed alarm on and call light in reach. Patient repositioned and oral care performed.
[2019-12-09] MEDS ORDERED: NS 500ML ONE (16:03)
--- NOTE | 2019-12-09 16:47 | NUR ---
CASE MANAGEMENT:INITIAL REVIEW 54 YR OLD MALE BIBA FROM [facility] CC;DYSPNEA. RESPIRATORY DISTRESS. SI;RESPIRATORY FAILURE 97.5 133 35 205/108 87% 15L NRB WBC 18.2 NA 128 K+ 5.3 CL 89 BUN 23 CR 2.3 BG 455 LAC ACID 3.70 AST 44 TROP 1 0.213 BNP 6155 ALB 2.5 ABG pH 7.183 pO2 52.8 HCO3 14.4 OS SAT 83.2 BASE EXCESS -13.2 UA+ PROTEIN, GLUCOSE, KETONES, BLOOD, BILIRUBIN, UROBILI, RBC, WBC, BACTERIA CXR ~ Satisfactory endotracheal intubation Extensive bilateral infiltrates versus edema, left greater than right Right basilar atelectatic changes COVID-19 PCR ~ RESULT PENDING IS;IVF NS BOLUS INSULIN HUMAN REGULAR IV ONCE VANCOMYCIN IV ONCE LOVENOX SUBQ ONCE ROCEPHIN IV ONCE ORAL INTUBATION ADMITTED TO ICU ICU STATUS DCP;FROM [facility]
--- NOTE | 2019-12-09 17:30 | NUR ---
NURSE NOTES: Patient cleaned and repositioned at this time. When patient turned, purulent drainage noted coming from scrotum. Will continue to monitor and notify primary MD.
--- NOTE | 2019-12-09 18:40 | NUR ---
NURSE NOTES: Left message for Dr Butt regarding patient's elevated blood sugar >450 throughout the day. Received call back at this time. NO verbal orders received. Dr Butt reported that he would place orders for this patient.
--- NOTE | 2019-12-09 19:30 | NUR ---
HAND-OFF: Report given to RACHELL Suero.
--- NOTE | 2019-12-09 19:45 | NUR ---
NURSE NOTES: PATIENT LETHARGIC STATUS, ON ETT TO VENT AC 22/TV 650/FIO2 100%/PEEP 15, O2 SATURATION 95% NOTED, HR 120'S/MIN ST, NGT TO RIGHT SIDE, INTACT, ABDOMEN NON TENDER ROUND, NO BM STATUS, F/C INTACT AND PATENT, MARCIANO COLOR OLIGURIA NOTED, TLC TO RIGHT FEMORAL AND PPL TO RIGHT AC, INTACT AND PATENT, ONGOING IV FLUID NS AT 125ML/HR VIA TLC, 2 POINT SOFT RESTRAINTS STATUS, LOWER BED POSITION, ON BED ALARM AND LOCKED, WILL CONTINUE TO MONITOR. Addendum: 12/10/19 at 0123 by ISABEL AHN RN WRONG DOCUMENTS. NURSE NOTES: PATIENT LETHARGIC STATUS, ON ETT TO VENT AC 28/TV 650/FIO2 100%/PEEP 15, O2 SATURATION 95% NOTED, HR 120'S/MIN ST, NGT TO RIGHT SIDE, INTACT, ABDOMEN NON TENDER ROUND, NO BM STATUS, F/C INTACT AND PATENT, MARCIANO COLOR OLIGURIA NOTED, TLC TO RIGHT FEMORAL AND PPL TO RIGHT AC, INTACT AND PATENT, ONGOING IV FLUID NS AT 125ML/HR VIA TLC, 2 POINT SOFT RESTRAINTS STATUS, LOWER BED POSITION, ON BED ALARM AND LOCKED, WILL CONTINUE TO MONITOR.
[2019-12-09] MEDS: Dyna-Hex 2% Top Sol 2oz TOPIC SCH (20:04)
[2019-12-09] MEDS: Levemir Flexpen SUBQ SCH (20:57)
--- NOTE | 2019-12-09 22:30 | NUR ---
NURSE NOTES: TEMP 101.7F NOTED, APPLIED COOLING BLANKET, WILL CONTINUE TO MONITOR.
--- NOTE | 2019-12-09 22:45 | Progress Note ---
DATE: 12/09/2019 INTERNAL MEDICINE PROGRESS NOTE SUBJECTIVE: The patient is on ventilator support, requiring 100% FiO2. Blood pressure parameters are tenuous. He is requiring pressor support. PHYSICAL EXAMINATION: VITAL SIGNS: Blood pressure 101/57, heart rate 114, respiratory rate 29, afebrile. T-max 102.4. LUNGS: Thin secretions, bilateral rhonchi and rales. CARDIAC: Regular rhythm. Rapid rate. Normal S1, S2. ABDOMEN: Soft, slightly distended. EXTREMITIES: Trace edema. LABORATORY DATA: ABG, 7.24, 36, 54. White count 20, hemoglobin 16. Sodium 131, potassium 4.2, bicarb 14, BUN 29, creatinine 2.8. Glucose 531, magnesium 1.5. Troponin 0.336. Pro-natriuretic peptide almost 15,000. Albumin 1.7. IMPRESSION: 1. Respiratory failure. 2. Sepsis with shock. 3. Severe hypoxia. 4. COVID-19 pneumonia suspected due to outpatient testing. 5. Metabolic acidosis. 6. Diabetes mellitus, uncontrolled. 7. Hypomagnesemia. 8. Hyponatremia. 9. Acute renal failure. 10. Acute myocardial ischemia. 11. Acute on chronic diastolic congestive heart failure. 12. Severe protein-calorie malnutrition, critical and guarded. PLAN: 1. Pulmonary and ID consults have been obtained and appreciated. 2. Continue vent. 3. Continue hydration with saline. 4. Continue titration of insulin. 5. Taper pressors as able. 6. Magnesium replacement. 7. Anticoagulation. 8. Stress ulcer prophylaxis. 9. Await results of repeat COVID-19 swab. Julio Butt M.D. DR: FRIDA JOB#: [id number] CC:
[2019-12-10] VITALS (61 sets, daily range): BP systolic 87–139; BP diastolic 35–83
--- NOTE | 2019-12-10 00:10 | NUR ---
NURSE NOTES: PATIENT LETHARGIC, ASLEEP STATUS, TEMP 100.3F NOTED BY RECTAL WITH COOLING BLANKET, WILL CONTINUE TO MONITOR.
[2019-12-10] MEDS: NovoLOG Insulin Flexpen SUBQ SCH ×6 (00:49→20:56)
--- NOTE | 2019-12-10 02:40 | NUR ---
NURSE NOTES: SBP OVER 90MMHG WITH LEVOPHED 30MCG/MIN, WILL CONTINUE PLAN OF CARE.
--- NOTE | 2019-12-10 04:20 | NUR ---
NURSE NOTES: MORNING CARE AND ORAL CARE WAS DONE, NO BM STATUS.
[2019-12-10] MEDS: Piperacillin/Tazobactam 3.375 GM in NS 110 ML IVPB SCH ×3 (05:04→21:36)
--- NOTE | 2019-12-10 05:10 | NUR ---
NURSE NOTES: ONGOING LEVOPHED 28MCG/MIN AT THIS TIME.
--- NOTE | 2019-12-10 07:17 | NUR ---
HAND-OFF: Report given to RACHELL SALAZAR.
--- NOTE | 2019-12-10 07:18 | NUR ---
NURSE NOTES: Pt received from RACHELL Suero. Pt noted with RASS -3, pt noted with movements to extremities; however pt does not open eyes or respond to voice/commands, gag reflex is intact, bilat pupils 3 mm with brisk light rxn. Versed on standby at this time. Pt is ST to monitoring manager (HR 105-110), bilateral radial and dorsalis pedis pulses 2+. Pt has non-pitting edema to both hands. Pt is mechanically ventilated with 8 ETT noted 23 cm at lip line with the following settings: AC 28 TV 650 FiO2 100% Peep 15. SpO2 noted 91-92%. All lung lobes noted diminished upon auscultation. F/C noted draining 5 cc of urine output (per RACHELL Suero pt has been oliguric during her shift) - scrotum is also noted enlarged with a lesion that is emitting purulent pus- left message for Dr Butt and Cecilia with BUN, Cr, and urine output status and scrotal swelling- also let them know pt has pitting edema and is receiving NS at 125 cc/hr- requested a nephro consult and scrotasl assessment. Awaiting call back. Pt has a right nares NGT noted clamped at this time. Abd is large, round, and slightly with hypoactive bowel sounds to all quadrants. Pt has a R fem TLC with dry and intact dressing running NS at 125 cc/hr and Levo at 28 mcg/min. Skin alterations noted. Pt on GLOST KILN PLACER, skin to both wrists intact without redness. Bed in lowest position with alarm on, side rails up x 3, call light within reach. Will continue to monitor. Addendum: 12/10/19 at 1041 by Neelima Wild RN Late entry: pt also noted on cooling blanket at this time.
[2019-12-10] MEDS: Norepinephrine Bitartrate 16 MG in NS 500 ML IV SCH (08:00)
--- NOTE | 2019-12-10 08:40 | NUR ---
NURSE NOTES: ABG results relayed to Dr Tian- no new orders for vent settings at this time. Also received call back from Dr Butt requesting consult with Dr Omer for scrotal lesion - Per Dr Butt, continue IV fluids (NS at 125 cc/hr) and no nephro consult at this time. Dr Omer contacted to see pt.
--- NOTE | 2019-12-10 09:16 | Critical Care Progress Note ---
Assessment/Plan Assessment/Plan IMPRESSION: Respiratory failure, leukocytosis, profound hypoxemia, hyponatremia, hyperkalemia, renal failure, elevated troponin, possible non-STEMI, significant acidemia, metabolic in origin. possible DKA. hypotension possible ARDS. possible COVID PLAN hypervent as is bicarb PRN insulin iv antibiotics support as able correct acidosis follow up cultures and labs ID eval per primary very ill and critical await COVID results medications/laboratory data/nursing notes/ICU care reviewed in detail note reviewed and edited care discussed with RN and RT ICU time spent >40 minutes Critical Care - Subjective Interval Events: improved acid base oxygen sats over 90 ROS Limited/Unobtainable: Yes Condition: critical EKG Rhythm: Sinus Tachycardia I&O: Intake and Output 12/09/19 12/10/19 19:00 07:00 Intake Total 2843.741 ml 2574.485 ml Output Total 50 ml 60 ml Balance 2793.741 ml 2514.485 ml Intake IV Total 2843.741 ml 2574.485 ml Output Urine Total 50 ml 60 ml Critical Care - Objective ET-Tube: 8.0 ET Position: 23 Last 24 Hour Vital Signs Date Time Temp Pulse Resp B/P (MAP) Pulse Ox O2 Delivery O2 Flow Rate FiO2 12/10/19 08:00 133/69 12/10/19 07:27 106 30 100 12/10/19 07:00 105 30 126/63 (84) 96 12/10/19 07:00 126/63 12/10/19 06:30 106 29 115/59 (77) 95 12/10/19 06:30 106 29 12/10/19 06:00 104 29 117/67 (84) 96 12/10/19 06:00 117/67 12/10/19 05:30 105 31 122/61 (81) 96 12/10/19 05:00 107 29 139/56 (83) 94 12/10/19 05:00 139/56 12/10/19 04:30 105 31 113/45 (67) 95 12/10/19 04:00 Mechanical Ventilator 12/10/19 04:00 100 12/10/19 04:00 98.2 106 31 104/55 (71) 95 12/10/19 04:00 104/55 12/10/19 03:30 107 30 113/39 (63) 94 12/10/19 03:15 108 12/10/19 03:09 111 28 100 12/10/19 03:00 109 29 110/51 (70) 94 12/10/19 03:00 110/51 12/10/19 02:30 110 30 106/51 (69) 95 12/10/19 02:00 103/70 12/10/19 02:00 112 29 103/70 (81) 95 12/10/19 01:30 114 29 99/67 (78) 96 12/10/19 01:00 99/67 12/10/19 01:00 116 28 99/67 (78) 96 12/10/19 00:30 117 25 104/67 (79) 95 12/10/19 00:00 100 12/10/19 00:00 100.3 118 29 95/64 (74) 95 12/10/19 00:00 Mechanical Ventilator 12/10/19 00:00 95/64 12/10/19 00:00 118 12/09/19 23:30 121 27 92/43 (59) 95 12/09/19 23:10 113 28 100 12/09/19 23:00 125 28 99/54 (69) 94 12/09/19 23:00 99/54 12/09/19 22:49 104/88 12/09/19 22:30 133 35 102/57 (72) 95 12/09/19 22:00 94/52 12/09/19 22:00 127 31 94/52 (66) 95 12/09/19 21:30 126 34 90/48 (62) 95 12/09/19 21:00 128 34 98/52 (67) 95 12/09/19 21:00 98/52 12/09/19 20:30 101.0 127 32 89/46 (60) 94 12/09/19 20:00 Mechanical Ventilator 12/09/19 20:00 100 12/09/19 20:00 91/42 12/09/19 20:00 128 37 91/42 (58) 94 12/09/19 19:39 128 12/09/19 19:30 128 35 98/50 (66) 94 12/09/19 19:10 126 30 100 12/09/19 19:00 128 38 93/52 (66) 93 12/09/19 19:00 97/57 12/09/19 18:30 128 32 86/48 (61) 93 12/09/19 18:00 128 40 93/44 (60) 93 12/09/19 18:00 93/44 12/09/19 17:30 127 38 98/56 (70) 93 12/09/19 17:00 128 39 89/49 (62) 93 12/09/19 17:00 89/49 12/09/19 17:00 30 121/65 Mechanical Ventilator 100 12/09/19 16:43 102.8 12/09/19 16:30 127 38 90/51 (64) 93 12/09/19 16:15 127 40 86/58 (67) 12/09/19 16:00 Mechanical Ventilator 12/09/19 16:00 102.8 126 42 91/58 (69) 93 12/09/19 16:00 100 12/09/19 16:00 91/58 12/09/19 16:00 30 130/87 Mechanical Ventilator 100 12/09/19 16:00 128 12/09/19 15:45 127 37 92/49 (63) 12/09/19 15:30 126 35 89/48 (62) 93 12/09/19 15:15 126 31 100 12/09/19 15:15 126 30 97/51 (66) 94 12/09/19 15:00 99/52 12/09/19 15:00 30 99/52 Mechanical Ventilator 100 12/09/19 15:00 125 31 99/52 (68) 12/09/19 14:45 125 32 99/50 (66) 12/09/19 14:30 124 31 100/53 (69) 12/09/19 14:15 122 30 95/51 (66) 92 12/09/19 14:00 121 29 84/49 (61) 90 12/09/19 14:00 84/49 12/09/19 14:00 29 84/49 Mechanical Ventilator 100 12/09/19 13:45 122 26 98/49 (65) 93 12/09/19 13:39 87/39 12/09/19 13:30 87/39 12/09/19 13:30 125 23 87/39 (55) 12/09/19 13:15 123 28 55/36 (42) 90 12/09/19 13:04 123 28 85/34 (51) 92 12/09/19 13:00 24 86/45 Mechanical Ventilator 100 12/09/19 13:00 86/45 12/09/19 13:00 123 25 86/45 (59) 92 12/09/19 12:45 123 29 90/47 (61) 92 12/09/19 12:45 26 90/47 100 12/09/19 12:39 121 34 88/59 (69) 91 12/09/19 12:30 121 32 81/45 (57) 90 12/09/19 12:23 31 81/51 Mechanical Ventilator 100 12/09/19 12:15 121 30 81/51 (61) 90 12/09/19 12:00 31 84/36 Mechanical Ventilator 100 12/09/19 12:00 81/51 12/09/19 12:00 102.3 122 30 84/39 (54) 90 12/09/19 12:00 125 12/09/19 12:00 Mechanical Ventilator 12/09/19 11:45 123 31 82/46 (58) 90 12/09/19 11:30 122 28 84/43 (57) 90 12/09/19 11:15 125 32 106/50 (68) 89 12/09/19 11:00 126 32 123/50 (74) 61 12/09/19 11:00 33 123/50 Mechanical Ventilator 100 12/09/19 11:00 106/50 12/09/19 10:45 125 32 106/73 (84) 12/09/19 10:45 123 34 100 12/09/19 10:30 102.5 123 33 110/73 (85) 12/09/19 10:14 121 28 98/55 (69) 12/09/19 10:03 32 96/54 Mechanical Ventilator 100 12/09/19 10:00 29 110/73 Mechanical Ventilator 100 12/09/19 10:00 110/73 12/09/19 10:00 121 28 98/55 (69) 12/09/19 09:30 118 30 101/50 (67) 90 Labs: Laboratory Tests Test 12/09/19 09:28 12/10/19 08:29 Arterial Blood pH 7.242 (7.350-7.450) 7.246 (7.350-7.450) Arterial Blood Partial Pressure CO2 36.9 mmHg (35.0-45.0) 35.0 mmHg (35.0-45.0) Arterial Blood Partial Pressure O2 54.0 mmHg (75.0-100.0) L 67.5 mmHg (75.0-100.0) L Arterial Blood HCO3 15.5 mmol/L (22.0-26.0) *L 14.9 mmol/L (22.0-26.0) *L Arterial Blood Oxygen Saturation 87.0 % (95-100) *L 93.5 % (95-100) L Arterial Blood Base Excess -11.0 (-2-2) *L -11.4 (-2-2) *L Colby Test Positive Positive Objective: deferred due to possible COVID Micro: Microbiology Date/Time Source Procedure Growth Status 12/08/19 11:50 Blood Blood Culture - Preliminary Resulted 12/08/19 11:30 Blood Blood Culture - Preliminary NO GROWTH AFTER 24 HOURS Resulted 12/09/19 09:58 Sputum Gram Stain Pending Resulted 12/09/19 09:58 Sputum Sputum Culture - Preliminary NO GROWTH Resulted 12/08/19 11:50 Nasal Nares MRSA Culture - Final Staphylococcus Aureus - Mrsa Complete 12/08/19 11:50 Urine,Clean Catch Urine Culture - Final Escherichia Coli Complete 12/08/19 11:50 Rectum - Final NO CARBAPENEM-RESISTANT ENTEROBACTERI... Complete 12/08/19 11:50 Rectum VRE Culture - Final NO VANCOMYCIN RESISTANT ENTEROCOCCUS ... Complete Accucheck: 330 Owen Tian MD Dec 10, 2019 09:15
[2019-12-10] MEDS: Enoxaparin 60mg Inj SUBQ SCH ×2 (09:25→20:55)
[2019-12-10] MEDS: Levemir Flexpen SUBQ SCH ×2 (09:32→20:57)
--- NOTE | 2019-12-10 09:45 | NUR ---
RD ASSESSMENT & RECOMMENDATIONS SEE CARE ACTIVITY FOR COMPLETE ASSESSMENT DAILY ESTIMATED NEEDS: Needs based on Critical care, obese, wounds 11-14 kcals/kg 2048-1134 total kcals 1.25-2 ABW 86.3 g protein/kg 108-173 g total protein Fluid per MD NUTRITION DIAGNOSIS: Swallowing difficulty r/t respiratory failure as evidenced by pt intubated, on pressors. ENTERAL NUTRITION RECOMMENDATIONS: Glucerna 1.5 -> trophic feeds while on NE If Glucerna 1.5 is OOS, rec to substitute w/ Vital AF 1.2 @5-10ml/hr. - As medically able obtain GI access, initiate trophic feeds of Glucerna 1.5 (5-10ml/hr) to maintain gut integrity. Pt not stable for goal feeds at this time. - Flush per , HOB over 30 degrees w/ feeds. (-> When stable-> rec goal of 50ml/hr x24 hrs to provide 1200ml, 1800 kcal, 99g pro, 911ml free H2O.) ------ ADDITIONAL RECOMMENDATIONS: 1) F/up w/ WOUND CARE eval; NPO at this time 2) Maintain calibrated bed scale wts
[2019-12-10] MEDS: Norepinephrine Bitartrate 16 MG in Sodium Chloride 484 ML IV SCH ×2 (10:00→18:01)
--- NOTE | 2019-12-10 10:00 | NUR ---
NURSE NOTES: New label brought up for levophed from pharmacy and scanned- per tali Cary, initial order (label scanned approx two hours ago) was entered incorrectly. Pt repositioned, no distress at this time. Dr Tian at bedside assessing pt.
--- NOTE | 2019-12-10 10:30 | NUR ---
NURSE NOTES: RD tube feeding recommendation noted and relayed to Dr Butt; however, Dr Butt would like pt to remain NPO at this time until further notice.
--- NOTE | 2019-12-10 10:37 | NUR ---
NURSE NOTES: Olaf from [employer] contacted for RASHIDA mattress order.
--- NOTE | 2019-12-10 12:00 | NUR ---
NURSE NOTES: Pt repositioned, oral care provided, no distress noted.
--- NOTE | 2019-12-10 14:00 | NUR ---
NURSE NOTES: Pt repositioned, no distress noted.
--- NOTE | 2019-12-10 14:00 | NUR ---
NURSE NOTES: Pt repositioned, no distress noted.
--- NOTE | 2019-12-10 15:32 | NUR ---
NURSE NOTES: Dr Butt at bedside assessing pt and placing orders as needed.
--- NOTE | 2019-12-10 16:15 | Consultation ---
DATE OF CONSULTATION: 12/10/2019 INFECTIOUS DISEASE CONSULTATION This consult is for coverage of Dr. Carty. CONSULTING PHYSICIAN: Ricco Gonzalez MD. PRIMARY ATTENDING: Julio Butt MD. REASON FOR CONSULT: Sepsis, septic shock, pneumonia, UTI, and scrotal cellulitis. HISTORY OF PRESENT ILLNESS: This 54-year-old male admitted on 12/08/2019 from nursing facility because of shortness of breath. Patient had desaturation. He was intubated in the ER. He was hypotensive and started on pressors. Developed a fever up to 102.8 in the hospital. He was tachycardic. PAST MEDICAL HISTORY: Significant for diabetes mellitus, morbid obesity, paraplegia, gout, dependence of oxygen. ALLERGIES: No known drug allergy. MEDICATIONS: Getting norepinephrine, insulin, Detemir, NovoLog insulin, Vancomycin, enoxaparin, Zosyn. SOCIAL HISTORY: [facility] resident. Single. No other history obtainable by the patient, but according to nurse developed scrotal lesion and pus coming from it. PHYSICAL EXAMINATION: VITAL SIGNS: T-max is 102.8 yesterday, pulse is 110, blood pressure 106/41. GENERAL APPEARANCE: Seems to be obese. HEAD AND NECK: Orally intubated. HEART: Tachycardic. Has femoral central line. LUNGS: He is on ventilator. ABDOMEN: Soft, nontender. EXTREMITIES: Has some edema. SKIN: Ulceration in sacrum and scrotal area. Has erythema in the scrotal area. LABORATORY AND DIAGNOSTIC DATA: Sodium 131, potassium 4.2, chloride 98, bicarbonate 24, BUN 29, creatinine 2.8, glucose 531. Hemoglobin is 11.1. Magnesium is low 1.5. Calcium is low at 7.4. AST 58. Troponin was elevated 0.336. Blood gas showed hypoxemia at the time of admission with a current pO2 is 60.7, O2 saturation 93.5, pCO2 is 35. UA showed wbc's of 15 to 20, leukocyte esterase 3+, bacteria many, ketones 3+, blood 2+, glucose, 2+, protein 3+. Blood culture showing gram-positive cocci in cluster. Another one is negative. COVID-19 is positive on 12/08/2019. Patient had another COVID test in nursing facility that was positive on 11/23/2019. Urine culture growing E. coli. VRE screen negative. Sputum so far is negative. Chest x-ray showed bilateral airspace disease, more than in the left side. IMPRESSION: Sepsis with septic shock. Has bacteremia with gram-positive cocci. Has E. coli UTI. Has COVID-19 disease with pneumonia. Has scrotal cellulitis hypoxemic respiratory failure, acute renal failure, acidosis, diabetes mellitus with hyperglycemia. Morbid obesity. RECOMMENDATION: Continue vancomycin and Zosyn. Patient will have a surgical evaluation for his scrotal lesion. We will follow up the culture. At the end of my exam, I thank Dr. Butt for involving me in the care of this patient. Ricco Gonzalez M.D. DR: GABRIELLE JOB#: [id number] CC: FLORESITA
[2019-12-10] MEDS: Morphine Sulfate 2mg/ml Inj(IV/IM USE ONLY) IVP PRN (16:50)
--- NOTE | 2019-12-10 17:45 | NUR ---
NURSE NOTES: Dr Omer assessing pt at bedside- scrotal lesion assessed - Per Dr Omer, keep perineal and scrotal area clean, and elevate scrotum.
--- NOTE | 2019-12-10 17:59 | Consultation ---
History of Present Illness General Date patient seen: Dec 10, 2019 Chief Complaint: Dyspnea/Respdistress Present Illness HPI This is a 54-year-old male nursing facility patient who recently began to have shortness of breath came to [facility] for evaluation where he was noted to be in respiratory insufficiency and impending failure nearly cyanotic was intubated and brought to the intensive care unit for further care and management. Patient was admitted and is in critical condition currently on vent support. Labs noted imaging noted exam with scrotal abscess surgery called to evaluate assist with care. Patient seen, patient evaluated, chart reviewed. Patient unable to provide history or provide examination during current condition Allergies: Coded Allergies: No Known Allergies (Unverified , 12/08/19) Medication History Scheduled Allopurinol* (Allopurinol*), 100 MG ORAL DAILY, (Reported) Apixaban (Eliquis), 2.5 MG PO BID, (Reported) Ascorbic Acid* (Vitamin C*), 500 MG ORAL DAILY, (Reported) Baclofen* (Baclofen*), 20 MG ORAL THREE TIMES A DAY, (Reported) Esomeprazole Magnesium (Nexium), 20 MG ORAL TID, (Reported) Gabapentin* (Gabapentin*), 900 MG ORAL THREE TIMES A DAY, (Reported) Montelukast Sodium* (Singulair*), 10 MG ORAL DAILY, (Reported) Multivitamins* (Multivitamins*), 1 TAB ORAL DAILY, (Reported) Miscellaneous Medications Bisacodyl (Bisacodyl), 10 MG RC, (Reported) Magnesium Citrate (Magnesium Citrate), 296 ML PO, (Reported) Patient History Limited by: medical condition History Provided By: Medical Record, PMD Healthcare decision maker Resuscitation status Advanced Directive on File Past Medical/Surgical History Past Medical/Surgical History: (1) Scrotal abscess (2) Respiratory failure (3) COVID-19 Review of Systems ROS Narrative Unable to obtain given current medical condition Physical Exam General Appearance: moderate distress Lines, tubes and drains: central line Neck: other Respiratory/Chest: decreased breath sounds, on vent Cardiovascular/Chest: tachycardia Abdomen: soft, no organomegaly, no mass Genitourinary/Rectal: other - Scrotal abscess noted spontaneously draining Extremities: inflammation, slow capillary refill, other Neurologic: unresponsiveness Last 24 Hour Vital Signs Date Time Temp Pulse Resp B/P (MAP) Pulse Ox O2 Delivery O2 Flow Rate FiO2 12/10/19 16:00 100 12/10/19 16:00 103/42 12/10/19 16:00 106 28 103/42 (62) 100 12/10/19 16:00 107 12/10/19 16:00 Mechanical Ventilator 12/10/19 15:30 109 33 114/64 (81) 100 12/10/19 15:21 108 34 100 12/10/19 15:00 108 31 94/65 (75) 100 12/10/19 15:00 94/65 12/10/19 14:30 111 32 93/61 (72) 99 12/10/19 14:00 112 32 99/60 (73) 99 12/10/19 14:00 99/60 12/10/19 13:30 112 34 105/83 (90) 98 12/10/19 13:00 106 32 110/54 (72) 99 12/10/19 13:00 110/54 12/10/19 12:30 102 33 99/54 (69) 100 12/10/19 12:00 97.6 103 31 104/53 (70) 99 12/10/19 12:00 Mechanical Ventilator 12/10/19 12:00 104/53 12/10/19 12:00 100 12/10/19 12:00 102 12/10/19 11:30 109 34 117/52 (73) 99 12/10/19 11:29 108 31 100 12/10/19 11:00 106/41 12/10/19 11:00 110 34 106/41 (62) 98 12/10/19 10:45 108 32 95/51 (66) 98 12/10/19 10:30 108 33 97/55 (69) 99 12/10/19 10:15 111 30 92/57 (69) 99 12/10/19 10:00 110/59 12/10/19 10:00 116 33 96/48 (64) 97 12/10/19 09:45 113 32 110/59 (76) 98 12/10/19 09:30 105 32 116/69 (85) 97 12/10/19 09:17 105 32 123/70 (87) 97 12/10/19 09:15 106 30 123/58 (79) 96 12/10/19 09:00 120/62 12/10/19 09:00 106 32 120/62 (81) 97 12/10/19 08:45 101 121/48 (72) 12/10/19 08:30 102 120/50 (73) 12/10/19 08:15 105 34 124/48 (73) 97 12/10/19 08:00 98.2 104 30 125/54 (77) 97 12/10/19 08:00 104 12/10/19 08:00 133/69 12/10/19 08:00 Mechanical Ventilator 12/10/19 08:00 100 12/10/19 07:45 103 32 133/69 (90) 95 12/10/19 07:30 104 28 120/39 (66) 97 12/10/19 07:27 106 30 100 12/10/19 07:15 106 31 127/65 (85) 96 12/10/19 07:00 105 30 126/63 (84) 96 12/10/19 07:00 126/63 12/10/19 06:30 106 29 115/59 (77) 95 12/10/19 06:30 106 29 12/10/19 06:00 104 29 117/67 (84) 96 12/10/19 06:00 117/67 12/10/19 05:30 105 31 122/61 (81) 96 12/10/19 05:00 107 29 139/56 (83) 94 12/10/19 05:00 139/56 12/10/19 04:30 105 31 113/45 (67) 95 12/10/19 04:00 Mechanical Ventilator 12/10/19 04:00 100 12/10/19 04:00 98.2 106 31 104/55 (71) 95 12/10/19 04:00 104/55 12/10/19 03:30 107 30 113/39 (63) 94 12/10/19 03:15 108 12/10/19 03:09 111 28 100 12/10/19 03:00 109 29 110/51 (70) 94 12/10/19 03:00 110/51 12/10/19 02:30 110 30 106/51 (69) 95 12/10/19 02:00 103/70 12/10/19 02:00 112 29 103/70 (81) 95 12/10/19 01:30 114 29 99/67 (78) 96 12/10/19 01:00 99/67 12/10/19 01:00 116 28 99/67 (78) 96 12/10/19 00:30 117 25 104/67 (79) 95 12/10/19 00:00 100 12/10/19 00:00 100.3 118 29 95/64 (74) 95 12/10/19 00:00 Mechanical Ventilator 12/10/19 00:00 95/64 12/10/19 00:00 118 12/09/19 23:30 121 27 92/43 (59) 95 12/09/19 23:10 113 28 100 12/09/19 23:00 125 28 99/54 (69) 94 12/09/19 23:00 99/54 12/09/19 22:49 104/88 12/09/19 22:30 133 35 102/57 (72) 95 12/09/19 22:00 94/52 12/09/19 22:00 127 31 94/52 (66) 95 12/09/19 21:30 126 34 90/48 (62) 95 12/09/19 21:00 128 34 98/52 (67) 95 12/09/19 21:00 98/52 12/09/19 20:30 101.0 127 32 89/46 (60) 94 12/09/19 20:00 Mechanical Ventilator 12/09/19 20:00 100 12/09/19 20:00 91/42 12/09/19 20:00 128 37 91/42 (58) 94 12/09/19 19:39 128 12/09/19 19:30 128 35 98/50 (66) 94 12/09/19 19:10 126 30 100 12/09/19 19:00 128 38 93/52 (66) 93 12/09/19 19:00 97/57 12/09/19 18:30 128 32 86/48 (61) 93 12/09/19 18:00 128 40 93/44 (60) 93 12/09/19 18:00 93/44 Intake and Output 12/09/19 12/10/19 19:00 07:00 Intake Total 2843.741 ml 2574.485 ml Output Total 50 ml 60 ml Balance 2793.741 ml 2514.485 ml Intake IV Total 2843.741 ml 2574.485 ml Output Urine Total 50 ml 60 ml Laboratory Tests Test 12/10/19 08:29 Arterial Blood pH 7.246 (7.350-7.450) Arterial Blood Partial Pressure CO2 35.0 mmHg (35.0-45.0) Arterial Blood Partial Pressure O2 67.5 mmHg (75.0-100.0) L Arterial Blood HCO3 14.9 mmol/L (22.0-26.0) *L Arterial Blood Oxygen Saturation 93.5 % (95-100) L Arterial Blood Base Excess -11.4 (-2-2) *L Colby Test Positive Height (Feet): 5 Height (Inches): 9.00 Weight (Pounds): 291 Medications Current Medications Medications (Trade) Dose Ordered Sig/Robert Route PRN Reason Start Time Stop Time Status Last Admin Dose Admin Acetaminophen (Tylenol) 650 mg Q4H PRN RECTAL Mild Pain (Pain Scale 1-3) 12/08/19 23:30 01/07/20 23:29 12/09/19 16:13 Chlorhexidine Gluconate (Kristine-Hex 2%) 1 applic DAILY@2000 TOPIC 12/09/19 20:00 03/08/20 19:59 12/09/19 20:04 Dextrose (Dextrose 50%) 25 ml Q30M PRN IV Hypoglycemia 12/09/19 06:15 03/08/20 06:14 Dextrose (Dextrose 50%) 50 ml Q30M PRN IV Hypoglycemia 12/09/19 06:15 03/08/20 06:14 Enoxaparin Sodium (Lovenox) 60 mg EVERY 12 HOURS SUBQ 12/09/19 09:00 03/08/20 08:59 12/10/19 09:25 Insulin Aspart (NovoLOG) Q4HR SUBQ 12/09/19 13:00 03/08/20 06:29 12/10/19 17:16 Insulin Detemir (Levemir) 10 units EVERY 12 HOURS SUBQ 12/09/19 21:00 03/08/20 20:59 12/10/19 09:32 Midazolam HCl 100 ml @ 0 mls/hr Q24H PRN IV Agitation 12/09/19 12:30 12/16/19 12:29 12/09/19 12:23 Morphine Sulfate (Morphine Sulfate) 2 mg Q4H PRN IVP For Pain 12/10/19 15:15 12/17/19 15:14 12/10/19 16:50 Norepinephrine Bitartrate 16 mg/ Sodium Chloride 500 ml @ 0 mls/hr Q24H IV 12/10/19 09:00 01/09/20 08:59 12/10/19 10:00 Piperacillin Sod/ Tazobactam Sod 3.375 gm/Sodium Chloride 110 ml @ 27.5 mls/hr EVERY 8 HOURS IVPB 12/08/19 22:00 12/13/19 21:59 12/10/19 13:14 Sodium Chloride 1,000 ml @ 125 mls/hr Q8H IV 12/08/19 18:30 01/07/20 18:29 12/10/19 10:00 Vancomycin HCl (Vanco pharmacy to dose) 1 ea DAILY PRN MISC Per rx protocol 12/08/19 18:30 01/07/20 18:29 Assessment/Plan Problem List: (1) COVID-19 Assessment & Plan: 1. Stable endotracheal tube from the exam earlier today ( in a satisfactory position). 2. Stable bilateral airspace disease left more dense and confluent than right and involving the upper lobe and lower lobe. 3. No worsening cardiopulmonary disease to include absence of interval pneumothorax. 4. No other significant interval changes. Appreciate ICU and Pulm team. Wean vent as tolerated. Antibiotics per infectious disease We will follow with recommendations ICD Codes: U07.1 - COVID-19 SNOMED: 068999467 (2) Respiratory failure Assessment & Plan: DAILY ESTIMATED NEEDS: Needs based on Critical care, obese, wounds 11-14 kcals/kg 6893-7027 total kcals 1.25-2 ABW 86.3 g protein/kg 108-173 g total protein Fluid per MD NUTRITION DIAGNOSIS: Swallowing difficulty r/t respiratory failure as evidenced by pt intubated, on pressors. ENTERAL NUTRITION RECOMMENDATIONS: Glucerna 1.5 -> trophic feeds while on NE If Glucerna 1.5 is OOS, rec to substitute w/ Vital AF 1.2 @5-10ml/hr. - As medically able obtain GI access, initiate trophic feeds of Glucerna 1.5 (5-10ml/hr) to maintain gut integrity. Pt not stable for goal feeds at this time. - Flush per , HOB over 30 degrees w/ feeds. (-> When stable-> rec goal of 50ml/hr x24 hrs to provide 1200ml, 1800 kcal, 99g pro, 911ml free H2O.) ------ ADDITIONAL RECOMMENDATIONS: 1) F/up w/ WOUND CARE eval; NPO at this time 2) Maintain calibrated bed scale wts ICD Codes: J96.90 - Respiratory failure, unspecified, unspecified whether with hypoxia or hypercapnia SNOMED: 784283982 (3) Scrotal abscess Assessment & Plan: 54-year-old male identified to have a scrotal abscess. When evaluated bedside it had spontaneously draining purulent drainage coming out of it. His scrotum has cellulitis and erythema. This does not seem to be Olive's gangrene. Spontaneously draining scrotal abscess likely from positioning and hygiene. Now spontaneously draining no further I&D needed. Purulent fluid manipulated out in wound bed okay. Dressings applied. Care instructions given. Will monitor closely in the event that this worsens or will require further intervention. Thank you for let me participate in patient' s care ICD Codes: N49.2 - Inflammatory disorders of scrotum SNOMED: 49660041 Celestine Omer Dec 10, 2019 17:58
--- NOTE | 2019-12-10 18:00 | NUR ---
NURSE NOTES: Pt observed calm, movements to extremities minimal, restraints discontinued at this time. Will monitor pt. Addendum: 12/10/19 at 1836 by Neelima Wild RN Late entry: pt also repositioned. RASHIDA mattress just arrived and was place beneath pt.
--- NOTE | 2019-12-10 18:23 | NUR ---
NURSE NOTES: Approximately 60 cc of versed (remaining in bag that was held previously this morning) wasted with RACHELL Mercado in [facility].
--- NOTE | 2019-12-10 19:01 | NUR ---
HAND-OFF: Report given to RACHELL Suero. Pt in no acute distress. BP 93/54.
[2019-12-10] MEDS: Dyna-Hex 2% Top Sol 2oz TOPIC SCH (19:40)
--- NOTE | 2019-12-10 19:47 | NUR ---
NURSE NOTES: PATIENT LETHARGIC STATUS, ON ETT TO VENT AC 28/TV 650/FIO2 100%/PEEP 15, O2 SATURATION 100% NOTED, HR 110'S/MIN ST, NGT TO RIGHT SIDE, INTACT, ABDOMEN NON TENDER ROUND, NO BM STATUS, F/C INTACT AND PATENT, MARCIANO COLOR OLIGURIA NOTED, TLC TO RIGHT FEMORAL AND PPL TO RIGHT AC, INTACT AND PATENT, ONGOING IV FLUID NS AT 125ML/HR VIA TLC, ON P200 BED, LOWER BED POSITION, ON BED ALARM AND LOCKED, WILL CONTINUE TO MONITOR.
--- NOTE | 2019-12-10 21:45 | NUR ---
NURSE NOTES: PATIENT NO RESPONSE TO NAME, TRIED TO BITE WHEN ORAL CARE, WILL CONTINUE TO MONITOR.
--- NOTE | 2019-12-10 23:24 | NUR ---
NURSE NOTES: ONGOING LEVOPHED 26MCG/MIN VIA TLC, ON COOLING BLANKET, TEMP 99.1 F NOTED, WILL CONTINUE PLAN OF CARE.
[2019-12-11] VITALS (64 sets, daily range): BP systolic 76–125; BP diastolic 42–79
[2019-12-11] MEDS: NovoLOG Insulin Flexpen SUBQ SCH ×6 (00:31→21:06)
--- NOTE | 2019-12-11 01:24 | NUR ---
NURSE NOTES: BP 91/52 MMHG, HR 122/MIN ST, O2 SATURATION 100% NOTED AT THIS TIME, NO ACUTE CHANGE OF CONDITION STATUS.
--- NOTE | 2019-12-11 02:30 | Progress Note ---
DATE: 12/10/2019 INTERNAL MEDICINE PROGRESS NOTE SUBJECTIVE: The patient remains in the intensive care unit. Blood pressure parameters are tenuous. He is requiring pressor support. He remains orally intubated. Mechanically ventilated. COVID-19 swab was positive. The patient was noted to have some draining abscess of his scrotal area and was seen by surgeon. OBJECTIVE: VITAL SIGNS: Blood pressure 133/69, pulse 106, respirations 30. LUNGS: Bilateral breath sounds, rhonchi, rales. HEART: Regular rhythm and rate. Normal S1, S2. ABDOMEN: Soft. Scrotal sac with drainage. EXTREMITIES: With trace dependent edema. Capillary refill diminished. LABORATORY DATA: ABG, 7.25, 35, 67 on 100% FiO2. IMPRESSION: 1. Remains critical and guarded. 2. Multiorgan system failure. 3. Sepsis with shock. 4. Healthcare-acquired pneumonia and positive COVID-19 infection. 5. Acute myocardial ischemia and possible NSTE myocardial infarction. PLAN: 1. Anticoagulation. 2. Oxygenation. 3. Antimicrobials. 4. Wound care. 5. Nutrition by NG tube. 6. Infectious Disease consultation appreciated. Julio Butt M.D. DR: MARILYNN JOB#: [id number] CC: FLORESITA
--- NOTE | 2019-12-11 03:20 | NUR ---
NURSE NOTES: MORNING CARE WAS DONE, NO BM STATUS.
[2019-12-11 04:47] LABS: BASOPHILS % (AUTO) 0.6 % (0.0-2.0); EOSINOPHILS % (AUTO) 1.5 % (0.0-3.0); HEMATOCRIT 34.6 % (42.0-52.0); LYMPHOCYTES % (AUTO) 12.6 % (20.0-45.0); MEAN CORPUSCULAR VOLUME 80 FL (80-99); MONOCYTES % (AUTO) 9.9 % (1.0-10.0); NEUTROPHILS % (AUTO) 75.4 % (45.0-75.0); PLATELET COUNT 186 K/UL (150-450); RED BLOOD COUNT 4.31 M/UL (4.70-6.10); RED CELL DISTRIBUTION WIDTH 20.8 % (11.6-14.8); WHITE BLOOD COUNT 11.4 K/UL (4.8-10.8)
[2019-12-11] MEDS: Norepinephrine Bitartrate 16 MG in Sodium Chloride 484 ML IV SCH ×3 (04:54→22:39)
[2019-12-11 05:10] LABS: ALANINE AMINOTRANSFERASE 61 U/L (12-78); ALBUMIN 2.2 G/DL (3.4-5.0); ALBUMIN/GLOBULIN RATIO 0.4 (1.0-2.7); ALKALINE PHOSPHATASE 77 U/L (46-116); ANION GAP 10 mmol/L (5-15); ASPARTATE AMINO TRANSFERASE 39 U/L (15-37); BILIRUBIN,TOTAL 0.7 MG/DL (0.2-1.0); BLOOD UREA NITROGEN 36 mg/dL (7-18); CALCIUM 8.3 MG/DL (8.5-10.1); CARBON DIOXIDE 27 MMOL/L (21-32); CHLORIDE 110 MMOL/L (98-107); CREATININE 1.3 MG/DL (0.55-1.30); POTASSIUM 3.6 MMOL/L (3.5-5.1); SODIUM 147 MMOL/L (136-145)
[2019-12-11] MEDS: Piperacillin/Tazobactam 3.375 GM in NS 110 ML IVPB SCH (05:38)
--- NOTE | 2019-12-11 05:43 | NUR ---
NURSE NOTES: BP 89/54MMHG, ONGOING LEVOPHED 30MCG/MIN VIA TLC, WILL CONTINUE TO MONITOR.
--- NOTE | 2019-12-11 07:07 | NUR ---
HAND-OFF: Report given to RACHELL TAM.
--- NOTE | 2019-12-11 07:34 | NUR ---
NURSE NOTES: Patient report received from RACHELL Strong. Orally intubated 02/24 AC 28 VT650 FIO2 100 Peep 15, patient on cooling blanket with fever at 100.9 at this time.Will continue close monitoring. Patient obtunded and on airbone precaution, COV 19 POSITIVE 6/5, good PPE wear and good handwash done before and after entering the room.Patient anuric at this time with farah in place, on P200 mattress for skin management.RF/TLC running Levophed at 30mcg/hr and RAC/20G running NS at 125.HOB elevated at 35 degree to prevent aspiration.Right nare GT placement intact with no residual.Will continue same care plan
--- NOTE | 2019-12-11 08:27 | Critical Care Progress Note ---
Assessment/Plan Assessment/Plan IMPRESSION: Respiratory failure, leukocytosis, profound hypoxemia, hyponatremia, hyperkalemia, renal failure, elevated troponin, possible non-STEMI, significant acidemia, metabolic in origin. possible DKA. hypotension possible ARDS. possible COVID PLAN hypervent as is bicarb if needed insulin iv antibiotics support as able correct acidosis as able follow up cultures and labs ID eval very ill and critical isolation for COVID repeat ABG medications/laboratory data/nursing notes/ICU care reviewed in detail note reviewed and edited care discussed with RN and RT ICU time spent >40 minutes Critical Care - Subjective Interval Events: oxygenation improved Condition: critical EKG Rhythm: Sinus Rhythm I&O: Intake and Output 12/10/19 12/11/19 19:00 07:00 Intake Total 2208.75 ml 2257.92 ml Output Total 20 ml 15 ml Balance 2188.75 ml 2242.92 ml Intake IV Total 2208.75 ml 2257.92 ml Output Urine Total 20 ml 15 ml Critical Care - Objective ET-Tube: 8.0 ET Position: 23 Last 24 Hour Vital Signs Date Time Temp Pulse Resp B/P (MAP) Pulse Ox O2 Delivery O2 Flow Rate FiO2 12/11/19 07:00 108 28 89/57 (68) 100 12/11/19 07:00 89/57 12/11/19 06:45 109 26 97/47 (64) 100 12/11/19 06:30 111 28 97/54 (68) 100 12/11/19 06:30 111 28 12/11/19 06:15 113 28 99/50 (66) 99 12/11/19 06:00 97/54 12/11/19 06:00 101.2 115 29 97/50 (66) 100 12/11/19 05:45 114 28 93/49 (64) 100 12/11/19 05:30 116 27 89/54 (66) 100 12/11/19 05:30 89/54 12/11/19 05:26 115 28 85/45 (58) 100 12/11/19 05:15 118 29 84/53 (63) 100 12/11/19 05:15 84/53 12/11/19 05:00 94/58 12/11/19 05:00 118 28 94/58 (70) 96 12/11/19 04:54 84/42 12/11/19 04:54 119 29 81/42 (55) 96 12/11/19 04:30 124 29 96/54 (68) 100 12/11/19 04:00 Mechanical Ventilator 12/11/19 04:00 95/68 12/11/19 04:00 100 12/11/19 04:00 102.1 124 30 95/68 (77) 100 12/11/19 03:45 124 12/11/19 03:31 123 29 100 12/11/19 03:30 123 28 96/53 (67) 100 12/11/19 03:15 122 28 88/54 (65) 100 12/11/19 03:00 123 29 91/51 (64) 100 12/11/19 03:00 91/51 12/11/19 02:30 123 28 90/50 (63) 100 12/11/19 02:00 122 29 91/48 (62) 100 12/11/19 02:00 91/48 12/11/19 01:30 123 30 93/53 (66) 100 12/11/19 01:00 122 29 95/60 (72) 100 12/11/19 01:00 95/60 12/11/19 00:30 122 30 90/45 (60) 100 12/11/19 00:00 100 12/11/19 00:00 Mechanical Ventilator 12/11/19 00:00 125 12/11/19 00:00 94/45 12/11/19 00:00 99.0 125 30 94/45 (61) 100 12/10/19 23:30 125 30 94/58 (70) 100 12/10/19 23:00 128 31 108/52 (70) 100 12/10/19 23:00 108/62 12/10/19 22:52 129 32 100 12/10/19 22:30 129 30 109/59 (76) 100 12/10/19 22:00 131 33 123/52 (75) 100 12/10/19 22:00 123/52 12/10/19 21:39 111 12/10/19 21:30 126 32 111/69 (83) 99 12/10/19 21:00 102/49 12/10/19 21:00 117 30 102/49 (66) 100 12/10/19 20:30 114 29 90/47 (61) 100 12/10/19 20:00 Mechanical Ventilator 12/10/19 20:00 100 12/10/19 20:00 99/49 12/10/19 20:00 98.0 115 29 99/49 (66) 100 12/10/19 19:30 111 30 93/47 (62) 100 12/10/19 19:00 110 29 93/39 (57) 100 12/10/19 19:00 93/39 12/10/19 18:54 110 30 100 12/10/19 18:30 108 29 94/40 (58) 100 12/10/19 18:15 108 30 96/51 (66) 100 12/10/19 18:01 89/40 12/10/19 18:00 108 28 94/35 (54) 100 12/10/19 17:55 108 30 89/40 (56) 100 12/10/19 17:45 107 27 89/40 (56) 100 12/10/19 17:30 106 28 90/45 (60) 100 12/10/19 17:15 105 26 89/53 (65) 100 12/10/19 17:00 106 26 87/54 (65) 100 12/10/19 17:00 87/54 12/10/19 16:30 106 28 109/66 (80) 100 12/10/19 16:00 100 12/10/19 16:00 103/42 12/10/19 16:00 106 28 103/42 (62) 100 12/10/19 16:00 107 12/10/19 16:00 Mechanical Ventilator 12/10/19 15:30 109 33 114/64 (81) 100 12/10/19 15:21 108 34 100 12/10/19 15:00 108 31 94/65 (75) 100 12/10/19 15:00 94/65 12/10/19 14:30 111 32 93/61 (72) 99 12/10/19 14:00 112 32 99/60 (73) 99 12/10/19 14:00 99/60 12/10/19 13:30 112 34 105/83 (90) 98 12/10/19 13:00 106 32 110/54 (72) 99 12/10/19 13:00 110/54 12/10/19 12:30 102 33 99/54 (69) 100 12/10/19 12:00 97.6 103 31 104/53 (70) 99 12/10/19 12:00 Mechanical Ventilator 12/10/19 12:00 104/53 12/10/19 12:00 100 12/10/19 12:00 102 12/10/19 11:30 109 34 117/52 (73) 99 12/10/19 11:29 108 31 100 12/10/19 11:00 106/41 12/10/19 11:00 110 34 106/41 (62) 98 12/10/19 10:45 108 32 95/51 (66) 98 12/10/19 10:30 108 33 97/55 (69) 99 12/10/19 10:15 111 30 92/57 (69) 99 12/10/19 10:00 110/59 12/10/19 10:00 116 33 96/48 (64) 97 12/10/19 09:45 113 32 110/59 (76) 98 12/10/19 09:30 105 32 116/69 (85) 97 12/10/19 09:17 105 32 123/70 (87) 97 12/10/19 09:15 106 30 123/58 (79) 96 12/10/19 09:00 120/62 12/10/19 09:00 106 32 120/62 (81) 97 12/10/19 08:45 101 121/48 (72) 12/10/19 08:30 102 120/50 (73) Labs: Laboratory Tests Test 12/10/19 08:29 12/11/19 04:00 Arterial Blood pH 7.246 (7.350-7.450) Arterial Blood Partial Pressure CO2 35.0 mmHg (35.0-45.0) Arterial Blood Partial Pressure O2 67.5 mmHg (75.0-100.0) L Arterial Blood HCO3 14.9 mmol/L (22.0-26.0) *L Arterial Blood Oxygen Saturation 93.5 % (95-100) L Arterial Blood Base Excess -11.4 (-2-2) *L Colby Test Positive White Blood Count 11.4 K/UL (4.8-10.8) H Red Blood Count 4.31 M/UL (4.70-6.10) L Hemoglobin 10.0 G/DL (14.2-18.0) L Hematocrit 34.6 % (42.0-52.0) L Mean Corpuscular Volume 80 FL (80-99) Mean Corpuscular Hemoglobin 23.1 PG (27.0-31.0) L Mean Corpuscular Hemoglobin Concent 28.8 G/DL (32.0-36.0) L Red Cell Distribution Width 20.8 % (11.6-14.8) H Platelet Count 186 K/UL (150-450) Mean Platelet Volume 7.8 FL (6.5-10.1) Neutrophils (%) (Auto) 75.4 % (45.0-75.0) H Lymphocytes (%) (Auto) 12.6 % (20.0-45.0) L Monocytes (%) (Auto) 9.9 % (1.0-10.0) Eosinophils (%) (Auto) 1.5 % (0.0-3.0) Basophils (%) (Auto) 0.6 % (0.0-2.0) Sodium Level 147 MMOL/L (136-145) H Potassium Level 3.6 MMOL/L (3.5-5.1) Chloride Level 110 MMOL/L (98-107) H Carbon Dioxide Level 27 MMOL/L (21-32) Anion Gap 10 mmol/L (5-15) Blood Urea Nitrogen 36 mg/dL (7-18) H Creatinine 1.3 MG/DL (0.55-1.30) Estimat Glomerular Filtration Rate 58.0 mL/min (>60) Glucose Level 148 MG/DL (74-106) H Calcium Level 8.3 MG/DL (8.5-10.1) L Total Bilirubin 0.7 MG/DL (0.2-1.0) Aspartate Amino Transf (AST/SGOT) 39 U/L (15-37) H Alanine Aminotransferase (ALT/SGPT) 61 U/L (12-78) Alkaline Phosphatase 77 U/L (46-116) Total Protein 7.2 G/DL (6.4-8.2) Albumin 2.2 G/DL (3.4-5.0) L Globulin 5.0 g/dL Albumin/Globulin Ratio 0.4 (1.0-2.7) L Random Vancomycin Level 12.1 ug/mL Objective: deferred due to COVID Micro: Microbiology Date/Time Source Procedure Growth Status 12/08/19 11:50 Blood Blood Culture - Preliminary Staphylococcus Sp Coag Neg Resulted 12/08/19 11:30 Blood Blood Culture - Preliminary NO GROWTH AFTER 48 HOURS Resulted 12/09/19 09:58 Sputum Gram Stain - Final Complete 12/09/19 09:58 Sputum Sputum Culture - Final NORMAL UPPER RESPIRATORY MARAH PRESENT Complete 12/08/19 11:50 Nasopharynx Coronavirus COVID-19 PCR (OSMANI) - Final Complete 12/08/19 11:50 Nasal Nares MRSA Culture - Final Staphylococcus Aureus - Mrsa Complete 12/08/19 11:50 Urine,Clean Catch Urine Culture - Final Escherichia Coli Complete 12/08/19 11:50 Rectum - Final NO CARBAPENEM-RESISTANT ENTEROBACTERI... Complete 12/08/19 11:50 Rectum VRE Culture - Final NO VANCOMYCIN RESISTANT ENTEROCOCCUS ... Complete Accucheck: 182 Owen Tian MD Dec 11, 2019 08:27
[2019-12-11] MEDS: Enoxaparin 60mg Inj SUBQ SCH ×2 (08:34→20:14)
[2019-12-11] MEDS: Levemir Flexpen SUBQ SCH ×2 (08:37→21:07)
--- NOTE | 2019-12-11 08:57 | NUR ---
NURSE NOTES: Spoke with Sera england Glucermita 1.5 not available to change to Vital AF. In other hand pt not stable on Levophed max.Will follow up with Md. Addendum: 12/11/19 at 1122 by Whitney Nieto RN [facility] Butt office and spoke with secreatry regrading diet on hold now due to pt unstable condition and request of change glucerna to vital af as recommended by water service dispatcher.Awaiting call back
[2019-12-11] MEDS ORDERED: Vancomycin 1.25gm/NS Premix q24h IVPB SCH (09:00)
--- NOTE | 2019-12-11 10:29 | NUR ---
NURSE NOTES: Patient turned and repositioned.HOB elevated to prevent aspiration.Call light within easy reach.No significant change at this time.Will continue close monitoring
--- NOTE | 2019-12-11 10:38 | NUR ---
NURSE NOTES: Patient seen by Dr Cross, will follow up with new orders.Made aware cov 19 positive 6/ and anuric at this time.
--- NOTE | 2019-12-11 10:51 | Infectious Diseases Prog Note ---
Assessment/Plan Assessment/Plan antibiotics : vancomycin iv, zosyn A 1. COVID 19 pneumonia 2. e.coli UTI 3. + blood cultures with coag neg staph likely contaminated 4. respiratory failure 5. diabetes mellitus 6. obesity 7. scrotal cellulitis P 1. continue iv vancomycin 2. d.c zosyn 3. start ceftriaxone 4. continue isolation 5. consider remdesivir EUA Subjective ROS Limited/Unobtainable: Yes Allergies: Coded Allergies: No Known Allergies (Unverified , 12/08/19) Objective Vital Signs Last 24 Hour Vital Signs Date Time Temp Pulse Resp B/P (MAP) Pulse Ox O2 Delivery O2 Flow Rate FiO2 12/11/19 10:00 97 28 109/70 (83) 100 12/11/19 10:00 109/70 12/11/19 09:30 98 28 103/71 (82) 100 12/11/19 09:00 100 26 108/71 (83) 100 12/11/19 09:00 108/71 12/11/19 08:45 104 28 100 12/11/19 08:30 103 28 107/59 (75) 99 12/11/19 08:00 100 12/11/19 08:00 104 28 104/55 (71) 100 12/11/19 08:00 103 12/11/19 08:00 104/55 12/11/19 08:00 Mechanical Ventilator 12/11/19 07:30 100.9 105 28 89/57 (68) 100 12/11/19 07:00 108 28 89/57 (68) 100 12/11/19 07:00 89/57 12/11/19 06:45 109 26 97/47 (64) 100 12/11/19 06:30 111 28 97/54 (68) 100 12/11/19 06:30 111 28 12/11/19 06:15 113 28 99/50 (66) 99 12/11/19 06:00 97/54 12/11/19 06:00 101.2 115 29 97/50 (66) 100 12/11/19 05:45 114 28 93/49 (64) 100 12/11/19 05:30 116 27 89/54 (66) 100 12/11/19 05:30 89/54 12/11/19 05:26 115 28 85/45 (58) 100 12/11/19 05:15 118 29 84/53 (63) 100 12/11/19 05:15 84/53 12/11/19 05:00 94/58 12/11/19 05:00 118 28 94/58 (70) 96 12/11/19 04:54 84/42 12/11/19 04:54 119 29 81/42 (55) 96 12/11/19 04:30 124 29 96/54 (68) 100 12/11/19 04:00 Mechanical Ventilator 12/11/19 04:00 95/68 12/11/19 04:00 100 12/11/19 04:00 102.1 124 30 95/68 (77) 100 12/11/19 03:45 124 12/11/19 03:31 123 29 100 12/11/19 03:30 123 28 96/53 (67) 100 12/11/19 03:15 122 28 88/54 (65) 100 12/11/19 03:00 123 29 91/51 (64) 100 12/11/19 03:00 91/51 12/11/19 02:30 123 28 90/50 (63) 100 12/11/19 02:00 122 29 91/48 (62) 100 12/11/19 02:00 91/48 12/11/19 01:30 123 30 93/53 (66) 100 12/11/19 01:00 122 29 95/60 (72) 100 12/11/19 01:00 95/60 12/11/19 00:30 122 30 90/45 (60) 100 12/11/19 00:00 100 12/11/19 00:00 Mechanical Ventilator 12/11/19 00:00 125 12/11/19 00:00 94/45 12/11/19 00:00 99.0 125 30 94/45 (61) 100 12/10/19 23:30 125 30 94/58 (70) 100 12/10/19 23:00 128 31 108/52 (70) 100 12/10/19 23:00 108/62 12/10/19 22:52 129 32 100 12/10/19 22:30 129 30 109/59 (76) 100 12/10/19 22:00 131 33 123/52 (75) 100 12/10/19 22:00 123/52 12/10/19 21:39 111 12/10/19 21:30 126 32 111/69 (83) 99 12/10/19 21:00 102/49 12/10/19 21:00 117 30 102/49 (66) 100 12/10/19 20:30 114 29 90/47 (61) 100 12/10/19 20:00 Mechanical Ventilator 12/10/19 20:00 100 12/10/19 20:00 99/49 12/10/19 20:00 98.0 115 29 99/49 (66) 100 12/10/19 19:30 111 30 93/47 (62) 100 12/10/19 19:00 110 29 93/39 (57) 100 12/10/19 19:00 93/39 12/10/19 18:54 110 30 100 12/10/19 18:30 108 29 94/40 (58) 100 12/10/19 18:15 108 30 96/51 (66) 100 12/10/19 18:01 89/40 12/10/19 18:00 108 28 94/35 (54) 100 12/10/19 17:55 108 30 89/40 (56) 100 12/10/19 17:45 107 27 89/40 (56) 100 12/10/19 17:30 106 28 90/45 (60) 100 12/10/19 17:15 105 26 89/53 (65) 100 12/10/19 17:00 106 26 87/54 (65) 100 12/10/19 17:00 87/54 12/10/19 16:30 106 28 109/66 (80) 100 12/10/19 16:00 100 12/10/19 16:00 103/42 12/10/19 16:00 106 28 103/42 (62) 100 12/10/19 16:00 107 12/10/19 16:00 Mechanical Ventilator 12/10/19 15:30 109 33 114/64 (81) 100 12/10/19 15:21 108 34 100 12/10/19 15:00 108 31 94/65 (75) 100 12/10/19 15:00 94/65 12/10/19 14:30 111 32 93/61 (72) 99 12/10/19 14:00 112 32 99/60 (73) 99 12/10/19 14:00 99/60 12/10/19 13:30 112 34 105/83 (90) 98 12/10/19 13:00 106 32 110/54 (72) 99 12/10/19 13:00 110/54 12/10/19 12:30 102 33 99/54 (69) 100 12/10/19 12:00 97.6 103 31 104/53 (70) 99 12/10/19 12:00 Mechanical Ventilator 12/10/19 12:00 104/53 12/10/19 12:00 100 12/10/19 12:00 102 12/10/19 11:30 109 34 117/52 (73) 99 12/10/19 11:29 108 31 100 12/10/19 11:00 106/41 12/10/19 11:00 110 34 106/41 (62) 98 Height (Feet): 5 Height (Inches): 9.00 Weight (Pounds): 300 HEENT: other - intubated Microbiology Date/Time Source Procedure Growth Status 12/08/19 11:50 Blood Blood Culture - Preliminary Staphylococcus Sp Coag Neg Resulted 12/08/19 11:30 Blood Blood Culture - Preliminary NO GROWTH AFTER 48 HOURS Resulted 12/09/19 09:58 Sputum Gram Stain - Final Complete 12/09/19 09:58 Sputum Sputum Culture - Final NORMAL UPPER RESPIRATORY MARAH PRESENT Complete 12/08/19 11:50 Nasopharynx Coronavirus COVID-19 PCR (OSMANI) - Final Complete 12/08/19 11:50 Nasal Nares MRSA Culture - Final Staphylococcus Aureus - Mrsa Complete 12/08/19 11:50 Urine,Clean Catch Urine Culture - Final Escherichia Coli Complete 12/08/19 11:50 Rectum - Final NO CARBAPENEM-RESISTANT ENTEROBACTERI... Complete 12/08/19 11:50 Rectum VRE Culture - Final NO VANCOMYCIN RESISTANT ENTEROCOCCUS ... Complete Laboratory Tests Test 12/11/19 04:00 12/11/19 08:53 White Blood Count 11.4 K/UL (4.8-10.8) H Red Blood Count 4.31 M/UL (4.70-6.10) L Hemoglobin 10.0 G/DL (14.2-18.0) L Hematocrit 34.6 % (42.0-52.0) L Mean Corpuscular Volume 80 FL (80-99) Mean Corpuscular Hemoglobin 23.1 PG (27.0-31.0) L Mean Corpuscular Hemoglobin Concent 28.8 G/DL (32.0-36.0) L Red Cell Distribution Width 20.8 % (11.6-14.8) H Platelet Count 186 K/UL (150-450) Mean Platelet Volume 7.8 FL (6.5-10.1) Neutrophils (%) (Auto) 75.4 % (45.0-75.0) H Lymphocytes (%) (Auto) 12.6 % (20.0-45.0) L Monocytes (%) (Auto) 9.9 % (1.0-10.0) Eosinophils (%) (Auto) 1.5 % (0.0-3.0) Basophils (%) (Auto) 0.6 % (0.0-2.0) Sodium Level 147 MMOL/L (136-145) H Potassium Level 3.6 MMOL/L (3.5-5.1) Chloride Level 110 MMOL/L (98-107) H Carbon Dioxide Level 27 MMOL/L (21-32) Anion Gap 10 mmol/L (5-15) Blood Urea Nitrogen 36 mg/dL (7-18) H Creatinine 1.3 MG/DL (0.55-1.30) Estimat Glomerular Filtration Rate 58.0 mL/min (>60) Glucose Level 148 MG/DL (74-106) H Calcium Level 8.3 MG/DL (8.5-10.1) L Total Bilirubin 0.7 MG/DL (0.2-1.0) Aspartate Amino Transf (AST/SGOT) 39 U/L (15-37) H Alanine Aminotransferase (ALT/SGPT) 61 U/L (12-78) Alkaline Phosphatase 77 U/L (46-116) Total Protein 7.2 G/DL (6.4-8.2) Albumin 2.2 G/DL (3.4-5.0) L Globulin 5.0 g/dL Albumin/Globulin Ratio 0.4 (1.0-2.7) L Random Vancomycin Level 12.1 ug/mL Arterial Blood pH Pending Arterial Blood Partial Pressure CO2 Pending Arterial Blood Partial Pressure O2 Pending Arterial Blood HCO3 Pending Arterial Blood Oxygen Saturation Pending Arterial Blood Base Excess Pending Colby Test Pending Current Medications Medications (Trade) Dose Ordered Sig/Robert Route PRN Reason Start Time Stop Time Status Last Admin Dose Admin Acetaminophen (Tylenol) 650 mg Q4H PRN RECTAL Mild Pain (Pain Scale 1-3) 12/08/19 23:30 01/07/20 23:29 12/09/19 16:13 Chlorhexidine Gluconate (Kristine-Hex 2%) 1 applic DAILY@2000 TOPIC 12/09/19 20:00 03/08/20 19:59 12/10/19 19:40 Dextrose (Dextrose 50%) 25 ml Q30M PRN IV Hypoglycemia 12/09/19 06:15 03/08/20 06:14 Dextrose (Dextrose 50%) 50 ml Q30M PRN IV Hypoglycemia 12/09/19 06:15 03/08/20 06:14 Enoxaparin Sodium (Lovenox) 60 mg EVERY 12 HOURS SUBQ 12/09/19 09:00 03/08/20 08:59 12/11/19 08:34 Insulin Aspart (NovoLOG) Q4HR SUBQ 12/09/19 13:00 03/08/20 06:29 12/11/19 08:37 Insulin Detemir (Levemir) 10 units EVERY 12 HOURS SUBQ 12/09/19 21:00 03/08/20 20:59 12/11/19 08:37 Midazolam HCl 100 ml @ 0 mls/hr Q24H PRN IV Agitation 12/09/19 12:30 12/16/19 12:29 12/09/19 12:23 Morphine Sulfate (Morphine Sulfate) 2 mg Q4H PRN IVP For Pain 12/10/19 15:15 12/17/19 15:14 12/10/19 16:50 Norepinephrine Bitartrate 16 mg/ Sodium Chloride 500 ml @ 0 mls/hr Q24H IV 12/10/19 09:00 01/09/20 08:59 12/11/19 04:54 Piperacillin Sod/ Tazobactam Sod 3.375 gm/Sodium Chloride 110 ml @ 27.5 mls/hr EVERY 8 HOURS IVPB 12/08/19 22:00 12/13/19 21:59 12/11/19 05:38 Sodium Chloride 1,000 ml @ 125 mls/hr Q8H IV 12/08/19 18:30 01/07/20 18:29 12/11/19 02:30 Vancomycin HCl (Vanco pharmacy to dose) 1 ea DAILY PRN MISC Per rx protocol 12/08/19 18:30 01/07/20 18:29 Vancomycin/Sodium Chloride 275 ml @ 183.333 mls/hr ONCE IVPB 12/11/19 09:00 12/11/19 11:00 12/11/19 08:34 Kristie Carty MD Dec 11, 2019 10:51
--- NOTE | 2019-12-11 10:57 | NUR ---
RADIOLOGY DEPT., CHEST X-RAY DONE.-P.DYE
--- NOTE | 2019-12-11 11:07 | NUR ---
NURSE NOTES: Paged Dr Butt and spoke to Rosmery from office regarding Sodium and anuria. Patient previously scanned and no urine. Received call back from Dr Pavithra Butt office, no new order at this time for anuria or nephrology consult and IV fluid changed to 1/2 NS. Charge nurse made aware.Patient also seen by Dr Hyde and made aware anuria. Will continue same care plan
--- NOTE | 2019-12-11 11:48 | Diagnostic Imaging Report ---
Indication: Shortness of breath Technique: One view of the chest Comparison: 12/08/2019 Findings: Stable satisfactory position of endotracheal tube. Interim placement of an orogastric tube, tip appears to be deep within the stomach. Bilateral infiltrates versus edema are probably unchanged allowing for differences in positioning and exposure technique. 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
[2019-12-11] MEDS ORDERED: Remdesivir Fact Sheet MISC SCH (12:00)
--- NOTE | 2019-12-11 12:06 | NUR ---
NURSE NOTES: Patient turned and repositioned.Mouth care done and suctioned as tolerated.Kept clean and dry.Call light within easy reach.No significant change in condition at this time.Will continue to monitor
[2019-12-11] MEDS: cefTRIAXone 1 GM in D5W 55 ML IVPB SCH (12:43)
[2019-12-11] MEDS ORDERED: Loading Dose:Remdesivir 200mg/NS 210ml IV SCH (13:00)
[2019-12-11 13:06] LABS: ANION GAP 17 mmol/L (5-15); BLOOD UREA NITROGEN 41 mg/dL (7-18); CARBON DIOXIDE 14 MMOL/L (21-32); CHLORIDE 109 MMOL/L (98-107); POTASSIUM 4.2 MMOL/L (3.5-5.1); SODIUM 140 MMOL/L (136-145)
--- NOTE | 2019-12-11 13:17 | NUR ---
CASE MANAGEMENT: REVIEW SI: RESPIRATORY FAILURE . COVID-19 PNA T 100.9 HR 111 RR 28 BP 89/57 SAT 99% MECH VENT FIO2 100 WBC 11.4 BUN 41 CR 5.0 GLUCOSE 207 IS: REMDESIVIR 100MG/NS IVF 250ML@125/HR NS IVF @ 75ML/HR LEVOPHED IV Q24HR CEFTRIAXONE IV Q24HR NOVOLOG SUBQ Q4HR ICU STATUS DCP: PATIENT IS FROM [facility]
--- NOTE | 2019-12-11 13:41 | Surgery Progress Note ---
Surgery Progress Note Subjective Additional Comments worsening ill appearing levo 30 100% and peep 15 Objective Last 24 Hour Vital Signs Date Time Temp Pulse Resp B/P (MAP) Pulse Ox O2 Delivery O2 Flow Rate FiO2 12/11/19 13:00 94 28 119/67 (84) 95 12/11/19 13:00 118/74 12/11/19 12:45 95 29 118/67 (84) 95 12/11/19 12:30 98 31 119/71 (87) 93 12/11/19 12:00 103 12/11/19 12:00 Mechanical Ventilator 12/11/19 12:00 98.6 99 29 110/72 (85) 93 12/11/19 12:00 60 12/11/19 12:00 113/74 12/11/19 11:30 103 32 111/66 (81) 95 12/11/19 11:21 101 28 60 12/11/19 11:00 95 28 113/66 (82) 99 12/11/19 11:00 110/68 12/11/19 10:30 96 28 110/66 (81) 100 12/11/19 10:00 97 28 109/70 (83) 100 12/11/19 10:00 109/70 12/11/19 09:30 98 28 103/71 (82) 100 12/11/19 09:00 100 26 108/71 (83) 100 12/11/19 09:00 108/71 12/11/19 08:45 104 28 100 12/11/19 08:30 103 28 107/59 (75) 99 12/11/19 08:00 100 12/11/19 08:00 104 28 104/55 (71) 100 12/11/19 08:00 103 12/11/19 08:00 104/55 12/11/19 08:00 Mechanical Ventilator 12/11/19 07:30 100.9 105 28 89/57 (68) 100 12/11/19 07:00 108 28 89/57 (68) 100 12/11/19 07:00 89/57 12/11/19 06:45 109 26 97/47 (64) 100 12/11/19 06:30 111 28 97/54 (68) 100 12/11/19 06:30 111 28 12/11/19 06:15 113 28 99/50 (66) 99 12/11/19 06:00 97/54 12/11/19 06:00 101.2 115 29 97/50 (66) 100 12/11/19 05:45 114 28 93/49 (64) 100 12/11/19 05:30 116 27 89/54 (66) 100 12/11/19 05:30 89/54 12/11/19 05:26 115 28 85/45 (58) 100 12/11/19 05:15 118 29 84/53 (63) 100 12/11/19 05:15 84/53 12/11/19 05:00 94/58 12/11/19 05:00 118 28 94/58 (70) 96 12/11/19 04:54 84/42 12/11/19 04:54 119 29 81/42 (55) 96 12/11/19 04:30 124 29 96/54 (68) 100 12/11/19 04:00 Mechanical Ventilator 12/11/19 04:00 95/68 12/11/19 04:00 100 12/11/19 04:00 102.1 124 30 95/68 (77) 100 12/11/19 03:45 124 12/11/19 03:31 123 29 100 12/11/19 03:30 123 28 96/53 (67) 100 12/11/19 03:15 122 28 88/54 (65) 100 12/11/19 03:00 123 29 91/51 (64) 100 12/11/19 03:00 91/51 12/11/19 02:30 123 28 90/50 (63) 100 12/11/19 02:00 122 29 91/48 (62) 100 12/11/19 02:00 91/48 12/11/19 01:30 123 30 93/53 (66) 100 12/11/19 01:00 122 29 95/60 (72) 100 12/11/19 01:00 95/60 12/11/19 00:30 122 30 90/45 (60) 100 12/11/19 00:00 100 12/11/19 00:00 Mechanical Ventilator 12/11/19 00:00 125 12/11/19 00:00 94/45 12/11/19 00:00 99.0 125 30 94/45 (61) 100 12/10/19 23:30 125 30 94/58 (70) 100 12/10/19 23:00 128 31 108/52 (70) 100 12/10/19 23:00 108/62 12/10/19 22:52 129 32 100 12/10/19 22:30 129 30 109/59 (76) 100 12/10/19 22:00 131 33 123/52 (75) 100 12/10/19 22:00 123/52 12/10/19 21:39 111 12/10/19 21:30 126 32 111/69 (83) 99 12/10/19 21:00 102/49 12/10/19 21:00 117 30 102/49 (66) 100 12/10/19 20:30 114 29 90/47 (61) 100 12/10/19 20:00 Mechanical Ventilator 12/10/19 20:00 100 12/10/19 20:00 99/49 12/10/19 20:00 98.0 115 29 99/49 (66) 100 12/10/19 19:30 111 30 93/47 (62) 100 12/10/19 19:00 110 29 93/39 (57) 100 12/10/19 19:00 93/39 12/10/19 18:54 110 30 100 12/10/19 18:30 108 29 94/40 (58) 100 12/10/19 18:15 108 30 96/51 (66) 100 12/10/19 18:01 89/40 12/10/19 18:00 108 28 94/35 (54) 100 12/10/19 17:55 108 30 89/40 (56) 100 12/10/19 17:45 107 27 89/40 (56) 100 12/10/19 17:30 106 28 90/45 (60) 100 12/10/19 17:15 105 26 89/53 (65) 100 12/10/19 17:00 106 26 87/54 (65) 100 12/10/19 17:00 87/54 12/10/19 16:30 106 28 109/66 (80) 100 12/10/19 16:00 100 12/10/19 16:00 103/42 12/10/19 16:00 106 28 103/42 (62) 100 12/10/19 16:00 107 12/10/19 16:00 Mechanical Ventilator 12/10/19 15:30 109 33 114/64 (81) 100 12/10/19 15:21 108 34 100 12/10/19 15:00 108 31 94/65 (75) 100 12/10/19 15:00 94/65 12/10/19 14:30 111 32 93/61 (72) 99 12/10/19 14:00 112 32 99/60 (73) 99 12/10/19 14:00 99/60 I&O Intake and Output 12/10/19 12/11/19 19:00 07:00 Intake Total 2208.75 ml 2257.92 ml Output Total 20 ml 15 ml Balance 2188.75 ml 2242.92 ml IV Total 2208.75 ml 2257.92 ml Output Urine Total 20 ml 15 ml Dressing: other Wound: other Drains: other Cardiovascular: RSR Respiratory: decreased breath sounds Abdomen: soft, non-distended, decreased bowel sounds Extremities: no cyanosis Laboratory Tests Test 12/11/19 04:00 12/11/19 08:53 12/11/19 12:10 White Blood Count 11.4 K/UL (4.8-10.8) H Red Blood Count 4.31 M/UL (4.70-6.10) L Hemoglobin 10.0 G/DL (14.2-18.0) L Hematocrit 34.6 % (42.0-52.0) L Mean Corpuscular Volume 80 FL (80-99) Mean Corpuscular Hemoglobin 23.1 PG (27.0-31.0) L Mean Corpuscular Hemoglobin Concent 28.8 G/DL (32.0-36.0) L Red Cell Distribution Width 20.8 % (11.6-14.8) H Platelet Count 186 K/UL (150-450) Mean Platelet Volume 7.8 FL (6.5-10.1) Neutrophils (%) (Auto) 75.4 % (45.0-75.0) H Lymphocytes (%) (Auto) 12.6 % (20.0-45.0) L Monocytes (%) (Auto) 9.9 % (1.0-10.0) Eosinophils (%) (Auto) 1.5 % (0.0-3.0) Basophils (%) (Auto) 0.6 % (0.0-2.0) Sodium Level 147 MMOL/L (136-145) H 140 MMOL/L (136-145) Potassium Level 3.6 MMOL/L (3.5-5.1) 4.2 MMOL/L (3.5-5.1) Chloride Level 110 MMOL/L (98-107) H 109 MMOL/L (98-107) H Carbon Dioxide Level 27 MMOL/L (21-32) 14 MMOL/L (21-32) L Anion Gap 10 mmol/L (5-15) 17 mmol/L (5-15) H Blood Urea Nitrogen 36 mg/dL (7-18) H 41 mg/dL (7-18) H Creatinine 1.3 MG/DL (0.55-1.30) 5.0 MG/DL (0.55-1.30) #H Estimat Glomerular Filtration Rate 58.0 mL/min (>60) 12.2 mL/min (>60) Glucose Level 148 MG/DL (74-106) H 207 MG/DL (74-106) H Calcium Level 8.3 MG/DL (8.5-10.1) L 7.0 MG/DL (8.5-10.1) L Total Bilirubin 0.7 MG/DL (0.2-1.0) Aspartate Amino Transf (AST/SGOT) 39 U/L (15-37) H Alanine Aminotransferase (ALT/SGPT) 61 U/L (12-78) Alkaline Phosphatase 77 U/L (46-116) Total Protein 7.2 G/DL (6.4-8.2) Albumin 2.2 G/DL (3.4-5.0) L Globulin 5.0 g/dL Albumin/Globulin Ratio 0.4 (1.0-2.7) L Random Vancomycin Level 12.1 ug/mL Arterial Blood pH Pending Arterial Blood Partial Pressure CO2 Pending Arterial Blood Partial Pressure O2 Pending Arterial Blood HCO3 Pending Arterial Blood Oxygen Saturation Pending Arterial Blood Base Excess Pending Colby Test Pending Plan Problems: (1) COVID-19 Assessment & Plan: 1. Stable endotracheal tube from the exam earlier today ( in a satisfactory position). 2. Stable bilateral airspace disease left more dense and confluent than right and involving the upper lobe and lower lobe. 3. No worsening cardiopulmonary disease to include absence of interval pneumothorax. 4. No other significant interval changes. Appreciate ICU and Pulm team. Wean vent as tolerated. Antibiotics per infectious disease We will follow with recommendations (2) Respiratory failure Assessment & Plan: DAILY ESTIMATED NEEDS: Needs based on Critical care, obese, wounds 11-14 kcals/kg 5278-4165 total kcals 1.25-2 ABW 86.3 g protein/kg 108-173 g total protein Fluid per MD NUTRITION DIAGNOSIS: Swallowing difficulty r/t respiratory failure as evidenced by pt intubated, on pressors. ENTERAL NUTRITION RECOMMENDATIONS: Glucerna 1.5 -> trophic feeds while on NE If Glucerna 1.5 is OOS, rec to substitute w/ Vital AF 1.2 @5-10ml/hr. - As medically able obtain GI access, initiate trophic feeds of Glucerna 1.5 (5-10ml/hr) to maintain gut integrity. Pt not stable for goal feeds at this time. - Flush per , HOB over 30 degrees w/ feeds. (-> When stable-> rec goal of 50ml/hr x24 hrs to provide 1200ml, 1800 kcal, 99g pro, 911ml free H2O.) ------ ADDITIONAL RECOMMENDATIONS: 1) F/up w/ WOUND CARE eval; NPO at this time 2) Maintain calibrated bed scale wts (3) Scrotal abscess Assessment & Plan: 54-year-old male identified to have a scrotal abscess. When evaluated bedside it had spontaneously draining purulent drainage coming out of it. His scrotum has cellulitis and erythema. This does not seem to be Olive's gangrene. Spontaneously draining scrotal abscess likely from positioning and hygiene. Now spontaneously draining no further I&D needed. Purulent fluid manipulated out in wound bed okay. Dressings applied. Care instructions given. Will monitor closely in the event that this worsens or will require further intervention. Thank you for let me participate in patient' s care prognosis Celestine Robles Dec 11, 2019 13:41
--- NOTE | 2019-12-11 14:17 | NUR ---
INTERQUAL CRITERIA MET
--- NOTE | 2019-12-11 14:29 | NUR ---
NURSE NOTES: Wound assessment done with wound nurse,turned and repositioned, all dressing changed, will continue same care plan.No significant change at this time
--- NOTE | 2019-12-11 16:39 | NUR ---
NURSE NOTES: Patient turned and repositioned.Mouth care performed and suctioned as tolerated.HOB elevated to prevent aspiration.No significant change at this time.Remains on max Levophed. Call light within easy reach.Bed lock in low position.Will continue close monitoring
[2019-12-11] MEDS ORDERED: 1/2 NS 1000ml IV ONE (16:45)
[2019-12-11] MEDS ORDERED: Tubing IV Secondary IV ONE (16:45)
--- NOTE | 2019-12-11 16:53 | NUR ---
NURSE NOTES:WOUND CARE NOTES:Pt presented on admission with multiple Pressure injuries. Rupali- shaped historical, surgical scar noted to Sacrum. Within area of scarring pt noted to have full thickness Pressure injury at parvez cleft-R gluteus (L). Base of wound at parvez cleft is pao with holt and fluctuant area extending into R gluteus (L)8.5cm x (W)7cm. Bone is palpable at base of wound at sacrococcygeal area. Full Thickness Pressure injury R trochanter (L)6cm x (W)6.5cm x (D)1.4cm ,Tunneling clockwise @9o'clock by 0.8cm. Base of wound noted to to have 80% fibrinous slough,20% pink. Bone exposure at 3o'clock and palpable at base of wound..Loose fibrinous slough removed with gentle friction. Small amt sanguineous exudate noted, 50% slough ,50% pale pink remains at base of wound . (+) Epibole along borders. Historical scarring periwound. Distally but in close Proximity to R trochanteric Pressure injury is a second Full thickness Pressure injury within historically scarred area(L)1cm x (W)2.2cm x (D)0.5cm. Base of wound is 50% slough, 50%pale pink but moist. Small amt serous exudate noted. No odor noted. Non-Blanching erythema periwound. Unstageable Pressure injury base of scrotum(L)3cm x (W)1.5cm. Base of wound is 100% soft necrosis. Surrounding Scrotum is grossly erythematous and denuded. Moisture Associated Skin Damage noted to abd panus, Shaft of penis, Bilat groin and medial aspects of both upper thighs.Affected areas are grossly erythematous and denuded. Full thickness pressure injury Posterior Upper L thigh. (L)8.8cm x (W)5.5cm x(D)0.8cm. Base of wound is moist pao with # 3 areas of slough within base of wound ,approx 25%. (+) Epibole along borders. Small amt seropurulent exudate noted . No odor noted.addional erythema with shearing periwound. Historical scar R heel ,otherwise R heel is blanchable. L Heel soft but easily blanchable. Dry callus noted to L Hallux. Non-Blanching erythema without induration/fluctuance lateral L foot. Tx.Plan: Cleanse Sacral wound with Saline. Apply TheraHoney. Apply Moisture Barrier Paste periwound. Cover with Optifoam drsg. Change every 3 days and prn. Cleanse wounds R trochanter with Saline. Apply TheraHoney. Apply Moisture Barrier Paste periwound. Cover with Optifoam drsgs. Change every 3 days and prn. Cleanse wound posterior Upper L thigh with Saline. Apply Therahoney. Apply Moisture Barrier Paste Periwound. Cover with Optifoam drsgs. Change every 3 days and prn. Apply Moisture Barrier Paste to wound at base of Scrotum Twice Daily and prn. Apply Moisture Barrier Paste to abdominal folds, Perineum and medial aspects of Both thighs with each Incontinence care. Apply Cavilon Skin Barrier to both heels. Cover each heel with Optifoam drsg.Change every 7 days and prn. Reposition at least every 2hours or as tolerated. Off-load heels with Pillows. APM/RASHIDA Mattress Overlay.
--- NOTE | 2019-12-11 18:06 | NUR ---
NURSE NOTES: Patient turned and repositioned.Mouth care performed, suctioned as tolerated.HOB elevated to prevent aspiration.Paged Dr Brooks regarding GT feeding Glucerna 1.5 non availability and as suggest by fire lieutenant started on Vital AF and keep at 10cc until glucerna delivered. Dr Brooks said its ok to follow the fire lieutenant recommendation at this time.GT feeding started Vital AF at 10cc/hr. Addendum: 12/11/19 at 1821 by Whitney Nieto RN Feeding changed to Glucerna 1.2 with low rate 20cc as a goal per Dr Brooks.Order noted and carried out
--- NOTE | 2019-12-11 19:23 | NUR ---
HAND-OFF: Report given to RACHELL Alamo.
--- NOTE | 2019-12-11 19:30 | NUR ---
NURSE NOTES: SBAR received from Whitney LOVETT. Patient currently orally intubated with ETT 8/23cm AC 28, 650tv, 100%FiO2 and peep of 15. Patient currently is receiving Glucerna 1.2 at 20ml/hr. There is a (RF) TLC and Levophed at 30mcg/min and 1/2NS at 75ml/hr. Decubitus ulcers noted. Patient is sedated with a RASS score of -2. P200 mattress noted. Bilateral soft wrist restraints noted-pulses present. Patient is pale in color but without palor. Rhonchi lungs sounds at lower bases. Non-tender abdomen. there is an NGT. Will continue to monitor.
--- NOTE | 2019-12-11 19:42 | NUR ---
NURSE NOTES: Director [employer] at bedside drawing BMP.
[2019-12-11] MEDS: Dyna-Hex 2% Top Sol 2oz TOPIC SCH (20:13)
[2019-12-11 20:28] LABS: ANION GAP 18 mmol/L (5-15); BLOOD UREA NITROGEN 43 mg/dL (7-18); CALCIUM 7.5 MG/DL (8.5-10.1); CARBON DIOXIDE 16 MMOL/L (21-32); CHLORIDE 107 MMOL/L (98-107); CREATININE 5.4 MG/DL (0.55-1.30); POTASSIUM 4.6 MMOL/L (3.5-5.1); SODIUM 141 MMOL/L (136-145)
--- NOTE | 2019-12-11 20:30 | NUR ---
NURSE NOTES: Bedside assessment. Bedside care given. Rodriguez care performed. rectal temp is 99.9F. Patient on cooling blanket, cooling blanket turned on. Oral care performed. Patient does desaturate quickly upon turning and stimulation. New Optifoam applied, wound care performed. Pressors slowly being titrated down as allowed by BP.
--- NOTE | 2019-12-11 22:06 | NUR ---
NURSE NOTES: Repositioned patient and suctioned. slowly titrating pressors accordingly. HR is 113 ST on the monitor, pulses are present. Centra line dressing changed.
--- NOTE | 2019-12-11 23:14 | NUR ---
HAND-OFF: Report given to Mrs. Tripp LOVETT. Plan of care was endorsed to oncoming RN. .
[2019-12-12] VITALS (54 sets, daily range): BP systolic 71–150; BP diastolic 11–85
--- NOTE | 2019-12-12 00:09 | NUR ---
NURSE NOTES: PATIENT NO RESPONSE TO VERBALLY AND TACTILE STIMULI, ON ETT TO VENT AC 28/TV 650/FIO2 100%/PEEP 15, O2 SATURATION 97% NOTED, HR 110'S/MIN ST, NGT TO RIGHT SIDE, INTACT AND PATENT, ONGOING GLUCERNA 1.5 AT 20ML/HR, NO RESIDUE NOTED, KEPT HOB 30 DEGREES AND ASPIRATION PRECAUTION, ABDOMEN NON TENDER ROUND, NO BM STATUS, F/C INTACT AND PATENT, AURIC STATUS, TLC TO RIGHT FEMORAL, INTACT AND PATENT, ONGOING IV FLUID 1/2 NS AT 75ML/HR VIA TLC, ON P200 BED, MADE LOWER BED POSITION, ON BED ALARM AND LOCKED, WILL CONTINUE TO MONITOR.
[2019-12-12] MEDS: NovoLOG Insulin Flexpen SUBQ SCH ×4 (00:54→13:33)
--- NOTE | 2019-12-12 02:00 | Progress Note ---
DATE: 12/11/2019 SUBJECTIVE: The patient remains critical and prognosis guarded. Initial chemistry panel results today were likely erroneous and repeat results are consistent with clinical findings. The patient remains on pressor support with low blood pressure parameters and full ventilator support. PHYSICAL EXAMINATION: VITAL SIGNS: Blood pressure 96/63, heart rate 117, respiratory rate 34, afebrile. GENERAL: Sedated. Thin trach secretions. LUNGS: Bilateral rales. CARDIAC: Regular rhythm. Rapid rate. Normal S1, S2. ABDOMEN: Slightly distended. OG tube in place. EXTREMITIES: A 1+ dependent edema. LABORATORY DATA: Sodium 140, potassium 4.2, bicarb 14, BUN 41, creatinine 5. White count 11, hemoglobin 10. IMPRESSION: 1. COVID-19 pneumonia. 2. ARDS. 3. Respiratory failure. 4. Sepsis. 5. Shock. 6. Acute renal failure due to ATN. PLAN: per an Infectious Disease. Full ventilator support and oxygenation. Anticoagulation has already been initiated. Nutrition by feeding tube. Continue hydration. Taper pressors as able. Prognosis is guarded. Julio Butt M.D. DR: HARRIS JOB#: [id number] CC:
--- NOTE | 2019-12-12 02:44 | NUR ---
NURSE NOTES: PATIENT OBTUNDED, ONGOING NEPRO AT 20ML/HR VIA NGT, KEPT HOB 30 DEGREES, WILL CONTINUE PLAN OF CARE.
--- NOTE | 2019-12-12 04:30 | NUR ---
NURSE NOTES: MORNING CARE WAS DONE, BS 158MG/DL NOTED, ONGOING NEPRO AT 25ML/HR NGT FEEDING, RESIDUE 40ML NOTED, WILL CONTINUE TO MONITOR.
[2019-12-12 04:52] LABS: HEMATOCRIT 43.6 % (42.0-52.0); HEMOGLOBIN 14.9 G/DL (14.2-18.0); MEAN CORPUSCULAR VOLUME 81 FL (80-99); PLATELET COUNT 346 K/UL (150-450); RED BLOOD COUNT 5.38 M/UL (4.70-6.10); RED CELL DISTRIBUTION WIDTH 13.7 % (11.6-14.8)
[2019-12-12 05:08] LABS: WHITE BLOOD COUNT 34.6 K/UL (4.8-10.8)
[2019-12-12 05:27] LABS: ALANINE AMINOTRANSFERASE 28 U/L (12-78); ALBUMIN 1.2 G/DL (3.4-5.0); ALBUMIN/GLOBULIN RATIO 0.3 (1.0-2.7); ALKALINE PHOSPHATASE 396 U/L (46-116); ANION GAP 17 mmol/L (5-15); ASPARTATE AMINO TRANSFERASE 35 U/L (15-37); BILIRUBIN,TOTAL 1.3 MG/DL (0.2-1.0); BLOOD UREA NITROGEN 45 mg/dL (7-18); CALCIUM 7.5 MG/DL (8.5-10.1); CARBON DIOXIDE 15 MMOL/L (21-32); CHLORIDE 107 MMOL/L (98-107); CREATININE 5.7 MG/DL (0.55-1.30); PHOSPHORUS 2.3 MG/DL (2.5-4.9); POTASSIUM 4.3 MMOL/L (3.5-5.1); SODIUM 139 MMOL/L (136-145)
--- NOTE | 2019-12-12 06:30 | NUR ---
NURSE NOTES: BP 77/60MMHG NOTED, INCREASED LEVOPHED 24MCG/MIN, WILL CONTINUE TO MONITOR.
--- NOTE | 2019-12-12 06:36 | NUR ---
RESPIRATORY NOTE: Received pt on ordered vent settings. Pt airway is patent and secured. Suctioned pt prn. Vent alarms are on and audible. Vent is plugged into red outlet. Will monitor pt progress.
--- NOTE | 2019-12-12 07:08 | NUR ---
HAND-OFF: Report given to RACHELL SHETTY.
--- NOTE | 2019-12-12 07:10 | NUR ---
NURSE NOTES: Received report from RACHELL Suero. Patient is obtunded. ST 120s on the monitor. ETT 8.0/23cm at lip line with vents setting AC 28, VT 650, FiO2 100% and Peep 15. O2 Sat high 80s on the monitor and breathing with using accessary muscles. Right NGT intact and running with Nepro 25ml/hr at this time. Rodriguez intact and draining with duong color urine. Right femoral TLC intact and running with 1/2NS 75ml/hr and levophed 24mcg/hr. SBP 90s on the monitor. Patient is on cooling blanket. Rectal Temp 97.6 F at this time. Kept dry, clean and comfortable. Will continue plan of care.
[2019-12-12] MEDS: Enoxaparin 60mg Inj SUBQ SCH (08:20)
[2019-12-12] MEDS: Morphine Sulfate 2mg/ml Inj(IV/IM USE ONLY) IVP PRN ×2 (08:43→14:36)
[2019-12-12] MEDS ORDERED: Levemir Flexpen SUBQ SCH (09:00)
--- NOTE | 2019-12-12 09:04 | Critical Care Progress Note ---
Assessment/Plan Assessment/Plan IMPRESSION: Respiratory failure, leukocytosis, profound hypoxemia, hyponatremia, hyperkalemia, renal failure, elevated troponin, possible non-STEMI, significant acidemia, metabolic in origin. possible DKA. hypotension possible ARDS. + COVID PLAN hypervent as is bicarb infusion insulin iv antibiotics support as able correct acidosis as able follow up cultures and labs ID recommendations very ill and critical isolation for COVID repeat ABG for change prognosis poor medications/laboratory data/nursing notes/ICU care reviewed in detail note reviewed and edited care discussed with RN and RT ICU time spent >40 minutes Critical Care - Subjective Interval Events: doing poorly tachy with reduced o2 sats ROS Limited/Unobtainable: Yes Condition: critical EKG Rhythm: Sinus Tachycardia I&O: Intake and Output 12/11/19 12/12/19 19:00 07:00 Intake Total 2375.083 ml 1679.82 ml Output Total 0 ml 0 ml Balance 2375.083 ml 1679.82 ml Intake Free Water 120 ml 40 ml IV Total 2235.083 ml 1384.82 ml Tube Feeding 20 ml 255 ml Output Urine Total 0 ml 0 ml Critical Care - Objective ET-Tube: 8.0 ET Position: 23 Last 24 Hour Vital Signs Date Time Temp Pulse Resp B/P (MAP) Pulse Ox O2 Delivery O2 Flow Rate FiO2 12/12/19 08:22 35 95/59 Mechanical Ventilator 100 12/12/19 07:00 126 38 96/48 (64) 94 12/12/19 07:00 96/48 12/12/19 06:36 128 36 80 12/12/19 06:30 127 35 12/12/19 06:30 127 35 77/60 (66) 86 12/12/19 06:30 77/60 12/12/19 06:15 129 35 84/56 (65) 87 12/12/19 06:06 129 36 91/70 (77) 86 12/12/19 06:00 79/56 12/12/19 06:00 130 37 79/56 (64) 91 12/12/19 05:30 128 34 95/66 (76) 89 12/12/19 05:00 123 35 91/40 (57) 95 12/12/19 05:00 91/40 12/12/19 04:30 123 35 92/68 (76) 91 12/12/19 04:15 121 33 92/61 (71) 93 12/12/19 04:00 98.9 117 35 99/79 (86) 95 12/12/19 04:00 99/79 12/12/19 04:00 Mechanical Ventilator 12/12/19 04:00 100 12/12/19 03:47 117 36 83/63 (70) 97 12/12/19 03:45 77/56 12/12/19 03:45 117 32 77/56 (63) 95 12/12/19 03:30 117 32 94/66 (75) 97 12/12/19 03:30 117 34 80 12/12/19 03:00 115 12/12/19 03:00 93/57 12/12/19 03:00 116 33 93/57 (69) 97 12/12/19 02:30 115 32 89/62 (71) 98 12/12/19 02:00 113 32 99/64 (76) 97 12/12/19 02:00 99/64 12/12/19 01:30 113 34 88/62 (71) 98 12/12/19 01:00 113 31 98/63 (75) 98 12/12/19 01:00 98/63 12/12/19 00:30 113 32 98/61 (73) 97 12/12/19 00:00 100 12/12/19 00:00 Mechanical Ventilator 12/12/19 00:00 94/65 12/12/19 00:00 99.6 114 31 94/65 (75) 98 12/11/19 23:45 114 12/11/19 23:30 115 32 84/60 (68) 98 12/11/19 23:00 118 26 92/57 (69) 97 12/11/19 23:00 92/57 12/11/19 22:57 117 31 80 12/11/19 22:45 116 32 91/61 (71) 98 12/11/19 22:39 99/59 12/11/19 22:30 117 34 96/63 (74) 98 12/11/19 22:15 118 32 99/59 (72) 99 12/11/19 22:00 118 31 93/65 (74) 98 12/11/19 22:00 93/65 12/11/19 21:45 118 32 95/53 (67) 98 12/11/19 21:30 118 32 101/63 (76) 97 12/11/19 21:15 118 35 100/64 (76) 96 12/11/19 21:00 107/56 12/11/19 21:00 120 34 107/56 (73) 86 12/11/19 20:45 121 37 115/64 (81) 82 20 20:30 119 33 76/47 (57) 86 12/11/19 20:15 110 30 87/60 (69) 96 12/11/19 20:00 Mechanical Ventilator 12/11/19 20:00 99.9 111 29 87/67 (74) 95 12/11/19 20:00 87/67 12/11/19 20:00 100 12/11/19 20:00 115 12/11/19 19:45 113 29 95/48 (64) 93 12/11/19 19:30 115 35 90/49 (63) 91 12/11/19 19:15 117 28 96/50 (65) 93 12/11/19 19:03 131 36 80 12/11/19 19:00 90/45 12/11/19 19:00 130 36 86/42 (57) 98 12/11/19 18:45 122 37 81/43 (56) 94 12/11/19 18:30 109 36 88/46 (60) 90 12/11/19 18:15 105 26 82/44 (57) 93 12/11/19 18:00 106/51 12/11/19 18:00 106 33 100/57 (71) 90 12/11/19 17:00 98.2 105 32 110/56 (74) 90 12/11/19 17:00 97/56 12/11/19 16:00 103 12/11/19 16:00 Mechanical Ventilator 12/11/19 16:00 105/53 12/11/19 16:00 70 12/11/19 16:00 103 32 105/53 (70) 90 12/11/19 15:30 105 33 99/51 (67) 90 12/11/19 15:14 119 32 70 12/11/19 15:00 114 36 96/53 (67) 94 12/11/19 15:00 96/53 12/11/19 14:30 115 33 80/49 (59) 92 6/8/20 14:21 86/51 12/11/19 14:00 92 30 125/79 (94) 94 12/11/19 14:00 86/51 12/11/19 14:00 92 30 125/79 (94) 94 12/11/19 13:30 93 29 120/72 (88) 94 12/11/19 13:00 94 28 119/67 (84) 95 12/11/19 13:00 118/74 12/11/19 12:45 95 29 118/67 (84) 95 12/11/19 12:30 98 31 119/71 (87) 93 12/11/19 12:00 103 12/11/19 12:00 Mechanical Ventilator 12/11/19 12:00 98.6 99 29 110/72 (85) 93 12/11/19 12:00 60 12/11/19 12:00 113/74 12/11/19 11:30 103 32 111/66 (81) 95 12/11/19 11:21 101 28 60 12/11/19 11:00 95 28 113/66 (82) 99 12/11/19 11:00 110/68 12/11/19 10:30 96 28 110/66 (81) 100 12/11/19 10:00 97 28 109/70 (83) 100 12/11/19 10:00 109/70 12/11/19 09:30 98 28 103/71 (82) 100 Labs: Laboratory Tests Test 12/11/19 12:10 12/11/19 19:50 12/12/19 03:20 Sodium Level 140 MMOL/L (136-145) 141 MMOL/L (136-145) 139 MMOL/L (136-145) Potassium Level 4.2 MMOL/L (3.5-5.1) 4.6 MMOL/L (3.5-5.1) 4.3 MMOL/L (3.5-5.1) Chloride Level 109 MMOL/L (98-107) H 107 MMOL/L (98-107) 107 MMOL/L (98-107) Carbon Dioxide Level 14 MMOL/L (21-32) L 16 MMOL/L (21-32) L 15 MMOL/L (21-32) L Anion Gap 17 mmol/L (5-15) H 18 mmol/L (5-15) H 17 mmol/L (5-15) H Blood Urea Nitrogen 41 mg/dL (7-18) H 43 mg/dL (7-18) H 45 mg/dL (7-18) H Creatinine 5.0 MG/DL (0.55-1.30) #H 5.4 MG/DL (0.55-1.30) H 5.7 MG/DL (0.55-1.30) H Estimat Glomerular Filtration Rate 12.2 mL/min (>60) 11.2 mL/min (>60) 10.5 mL/min (>60) Glucose Level 207 MG/DL (74-106) H 183 MG/DL (74-106) H 151 MG/DL (74-106) H Calcium Level 7.0 MG/DL (8.5-10.1) L 7.5 MG/DL (8.5-10.1) L 7.5 MG/DL (8.5-10.1) L White Blood Count 34.6 K/UL (4.8-10.8) #*H Red Blood Count 5.38 M/UL (4.70-6.10) Hemoglobin 14.9 G/DL (14.2-18.0) # Hematocrit 43.6 % (42.0-52.0) Mean Corpuscular Volume 81 FL (80-99) Mean Corpuscular Hemoglobin 27.7 PG (27.0-31.0) Mean Corpuscular Hemoglobin Concent 34.2 G/DL (32.0-36.0) Red Cell Distribution Width 13.7 % (11.6-14.8) Platelet Count 346 K/UL (150-450) # Mean Platelet Volume 5.7 FL (6.5-10.1) L Neutrophils (%) (Auto) % (45.0-75.0) Lymphocytes (%) (Auto) % (20.0-45.0) Monocytes (%) (Auto) % (1.0-10.0) Eosinophils (%) (Auto) % (0.0-3.0) Basophils (%) (Auto) % (0.0-2.0) Neutrophils % (Manual) Pending Lymphocytes % (Manual) Pending Platelet Estimate Pending Platelet Morphology Pending Phosphorus Level 2.3 MG/DL (2.5-4.9) L Magnesium Level 1.9 MG/DL (1.8-2.4) Total Bilirubin 1.3 MG/DL (0.2-1.0) H Direct Bilirubin 1.0 MG/DL (0.0-0.3) H Aspartate Amino Transf (AST/SGOT) 35 U/L (15-37) Alanine Aminotransferase (ALT/SGPT) 28 U/L (12-78) Alkaline Phosphatase 396 U/L (46-116) H Troponin I 0.164 ng/mL (0.000-0.056) Total Protein 5.9 G/DL (6.4-8.2) L Albumin 1.2 G/DL (3.4-5.0) L Globulin 4.7 g/dL Albumin/Globulin Ratio 0.3 (1.0-2.7) L Random Vancomycin Level 27.5 ug/mL Objective: deferred due to COVID Micro: Microbiology Date/Time Source Procedure Growth Status 12/09/19 09:58 Sputum Gram Stain - Final Complete 12/09/19 09:58 Sputum Sputum Culture - Final NORMAL UPPER RESPIRATORY MARAH PRESENT Complete Accucheck: 178 Owen Tian MD Dec 12, 2019 09:04
--- NOTE | 2019-12-12 09:30 | NUR ---
NURSE NOTES: Informed Dr. Tian of pt's ABG results. New orders read back and confirmed.
[2019-12-12] MEDS ORDERED: Sodium Bicarbonate 50ml Carp IV ONE (09:36)
[2019-12-12] MEDS: Norepinephrine Bitartrate 16 MG in Sodium Chloride 484 ML IV SCH (09:58)
[2019-12-12] MEDS: cefTRIAXone 1 GM in D5W 55 ML IVPB SCH (10:04)
--- NOTE | 2019-12-12 10:27 | NUR ---
NURSE NOTES: Seen by Dr. Carty and assessed patient. Updated patient's status and WBC, Labs. No new orders at this times.
--- NOTE | 2019-12-12 11:42 | Infectious Diseases Prog Note ---
Assessment/Plan Assessment/Plan antibiotics : ceftriaxone remdesivir 6.8.20 - A 1. COVID 19 pneumonia on Fi 02 100 percent, PEEP 5, O2 saturation 81 percent 2. e.coli UTI 3. + blood cultures with coag neg staph likely contaminated 4. respiratory failure 5. diabetes mellitus 6. obesity 7. scrotal cellulitis P 1. continue ceftriaxone 2. continue isolation 3. will follow up cultures 4. continue remdesivir EUA day 2 Subjective ROS Limited/Unobtainable: Yes Allergies: Coded Allergies: No Known Allergies (Unverified , 12/08/19) Objective Vital Signs Last 24 Hour Vital Signs Date Time Temp Pulse Resp B/P (MAP) Pulse Ox O2 Delivery O2 Flow Rate FiO2 12/12/19 10:30 128 26 107/64 (78) 82 12/12/19 10:00 125 25 105/78 (87) 84 12/12/19 09:58 94/52 12/12/19 09:30 128 30 97/53 (68) 87 12/12/19 09:00 128 31 95/60 (72) 87 12/12/19 08:30 97.6 135 36 99/14 (42) 76 12/12/19 08:22 35 95/59 Mechanical Ventilator 100 12/12/19 08:00 Mechanical Ventilator 12/12/19 08:00 131 35 102/55 (71) 78 12/12/19 08:00 100 12/12/19 07:30 128 34 92/54 (67) 85 12/12/19 07:00 126 38 96/48 (64) 94 12/12/19 07:00 96/48 12/12/19 06:36 128 36 80 12/12/19 06:30 127 35 12/12/19 06:30 127 35 77/60 (66) 86 12/12/19 06:30 77/60 12/12/19 06:15 129 35 84/56 (65) 87 12/12/19 06:06 129 36 91/70 (77) 86 12/12/19 06:00 79/56 12/12/19 06:00 130 37 79/56 (64) 91 12/12/19 05:30 128 34 95/66 (76) 89 12/12/19 05:00 123 35 91/40 (57) 95 6/9/20 05:00 91/40 12/12/19 04:30 123 35 92/68 (76) 91 12/12/19 04:15 121 33 92/61 (71) 93 12/12/19 04:00 98.9 117 35 99/79 (86) 95 12/12/19 04:00 99/79 12/12/19 04:00 Mechanical Ventilator 12/12/19 04:00 100 12/12/19 03:47 117 36 83/63 (70) 97 12/12/19 03:45 77/56 12/12/19 03:45 117 32 77/56 (63) 95 12/12/19 03:30 117 32 94/66 (75) 97 12/12/19 03:30 117 34 80 12/12/19 03:00 115 12/12/19 03:00 93/57 12/12/19 03:00 116 33 93/57 (69) 97 12/12/19 02:30 115 32 89/62 (71) 98 12/12/19 02:00 113 32 99/64 (76) 97 12/12/19 02:00 99/64 12/12/19 01:30 113 34 88/62 (71) 98 12/12/19 01:00 113 31 98/63 (75) 98 12/12/19 01:00 98/63 12/12/19 00:30 113 32 98/61 (73) 97 12/12/19 00:00 100 12/12/19 00:00 Mechanical Ventilator 12/12/19 00:00 94/65 12/12/19 00:00 99.6 114 31 94/65 (75) 98 12/11/19 23:45 114 12/11/19 23:30 115 32 84/60 (68) 98 12/11/19 23:00 118 26 92/57 (69) 97 12/11/19 23:00 92/57 12/11/19 22:57 117 31 80 12/11/19 22:45 116 32 91/61 (71) 98 12/11/19 22:39 99/59 12/11/19 22:30 117 34 96/63 (74) 98 12/11/19 22:15 118 32 99/59 (72) 99 12/11/19 22:00 118 31 93/65 (74) 98 12/11/19 22:00 93/65 6 21:45 118 32 95/53 (67) 98 12/11/19 21:30 118 32 101/63 (76) 97 12/11/19 21:15 118 35 100/64 (76) 96 12/11/19 21:00 107/56 12/11/19 21:00 120 34 107/56 (73) 86 12/11/19 20:45 121 37 115/64 (81) 82 12/11/19 20:30 119 33 76/47 (57) 86 12/11/19 20:15 110 30 87/60 (69) 96 12/11/19 20:00 Mechanical Ventilator 12/11/19 20:00 99.9 111 29 87/67 (74) 95 12/11/19 20:00 87/67 12/11/19 20:00 100 12/11/19 20:00 115 12/11/19 19:45 113 29 95/48 (64) 93 12/11/19 19:30 115 35 90/49 (63) 91 12/11/19 19:15 117 28 96/50 (65) 93 12/11/19 19:03 131 36 80 12/11/19 19:00 90/45 12/11/19 19:00 130 36 86/42 (57) 98 12/11/19 18:45 122 37 81/43 (56) 94 12/11/19 18:30 109 36 88/46 (60) 90 12/11/19 18:15 105 26 82/44 (57) 93 12/11/19 18:00 106/51 12/11/19 18:00 106 33 100/57 (71) 90 12/11/19 17:00 98.2 105 32 110/56 (74) 90 12/11/19 17:00 97/56 12/11/19 16:00 103 12/11/19 16:00 Mechanical Ventilator 12/11/19 16:00 105/53 12/11/19 16:00 70 12/11/19 16:00 103 32 105/53 (70) 90 12/11/19 15:30 105 33 99/51 (67) 90 12/11/19 15:14 119 32 70 12/11/19 15:00 114 36 96/53 (67) 94 12/11/19 15:00 96/53 12/11/19 14:30 115 33 80/49 (59) 92 12/11/19 14:21 86/51 12/11/19 14:00 92 30 125/79 (94) 94 12/11/19 14:00 86/51 12/11/19 14:00 92 30 125/79 (94) 94 12/11/19 13:30 93 29 120/72 (88) 94 12/11/19 13:00 94 28 119/67 (84) 95 12/11/19 13:00 118/74 12/11/19 12:45 95 29 118/67 (84) 95 12/11/19 12:30 98 31 119/71 (87) 93 12/11/19 12:00 103 12/11/19 12:00 Mechanical Ventilator 12/11/19 12:00 98.6 99 29 110/72 (85) 93 12/11/19 12:00 60 12/11/19 12:00 113/74 Height (Feet): 5 Height (Inches): 9.00 Weight (Pounds): 302 HEENT: other - intubated Laboratory Tests Test 12/11/19 12:10 12/11/19 19:50 12/12/19 03:20 12/12/19 09:06 Sodium Level 140 MMOL/L (136-145) 141 MMOL/L (136-145) 139 MMOL/L (136-145) Potassium Level 4.2 MMOL/L (3.5-5.1) 4.6 MMOL/L (3.5-5.1) 4.3 MMOL/L (3.5-5.1) Chloride Level 109 MMOL/L (98-107) H 107 MMOL/L (98-107) 107 MMOL/L (98-107) Carbon Dioxide Level 14 MMOL/L (21-32) L 16 MMOL/L (21-32) L 15 MMOL/L (21-32) L Anion Gap 17 mmol/L (5-15) H 18 mmol/L (5-15) H 17 mmol/L (5-15) H Blood Urea Nitrogen 41 mg/dL (7-18) H 43 mg/dL (7-18) H 45 mg/dL (7-18) H Creatinine 5.0 MG/DL (0.55-1.30) #H 5.4 MG/DL (0.55-1.30) H 5.7 MG/DL (0.55-1.30) H Estimat Glomerular Filtration Rate 12.2 mL/min (>60) 11.2 mL/min (>60) 10.5 mL/min (>60) Glucose Level 207 MG/DL (74-106) H 183 MG/DL (74-106) H 151 MG/DL (74-106) H Calcium Level 7.0 MG/DL (8.5-10.1) L 7.5 MG/DL (8.5-10.1) L 7.5 MG/DL (8.5-10.1) L White Blood Count 34.6 K/UL (4.8-10.8) #*H Red Blood Count 5.38 M/UL (4.70-6.10) Hemoglobin 14.9 G/DL (14.2-18.0) # Hematocrit 43.6 % (42.0-52.0) Mean Corpuscular Volume 81 FL (80-99) Mean Corpuscular Hemoglobin 27.7 PG (27.0-31.0) Mean Corpuscular Hemoglobin Concent 34.2 G/DL (32.0-36.0) Red Cell Distribution Width 13.7 % (11.6-14.8) Platelet Count 346 K/UL (150-450) # Mean Platelet Volume 5.7 FL (6.5-10.1) L Neutrophils (%) (Auto) % (45.0-75.0) Lymphocytes (%) (Auto) % (20.0-45.0) Monocytes (%) (Auto) % (1.0-10.0) Eosinophils (%) (Auto) % (0.0-3.0) Basophils (%) (Auto) % (0.0-2.0) Differential Total Cells Counted 100 Neutrophils % (Manual) 86 % (45-75) H Lymphocytes % (Manual) 3 % (20-45) L Monocytes % (Manual) 7 % (1-10) Eosinophils % (Manual) 1 % (0-3) Basophils % (Manual) 0 % (0-2) Band Neutrophils 3 % (0-8) Platelet Estimate Adequate Platelet Morphology Normal Red Blood Cell Morphology Normal Phosphorus Level 2.3 MG/DL (2.5-4.9) L Magnesium Level 1.9 MG/DL (1.8-2.4) Total Bilirubin 1.3 MG/DL (0.2-1.0) H Direct Bilirubin 1.0 MG/DL (0.0-0.3) H Aspartate Amino Transf (AST/SGOT) 35 U/L (15-37) Alanine Aminotransferase (ALT/SGPT) 28 U/L (12-78) Alkaline Phosphatase 396 U/L (46-116) H Troponin I 0.164 ng/mL (0.000-0.056) Total Protein 5.9 G/DL (6.4-8.2) L Albumin 1.2 G/DL (3.4-5.0) L Globulin 4.7 g/dL Albumin/Globulin Ratio 0.3 (1.0-2.7) L Random Vancomycin Level 27.5 ug/mL Arterial Blood pH 7.146 (7.350-7.450) Arterial Blood Partial Pressure CO2 37.7 mmHg (35.0-45.0) Arterial Blood Partial Pressure O2 50.6 mmHg (75.0-100.0) L Arterial Blood HCO3 12.7 mmol/L (22.0-26.0) *L Arterial Blood Oxygen Saturation 85.2 % (95-100) *L Arterial Blood Base Excess -15.4 (-2-2) *L Colby Test Positive Current Medications Medications (Trade) Dose Ordered Sig/Robert Route PRN Reason Start Time Stop Time Status Last Admin Dose Admin Acetaminophen (Tylenol) 650 mg Q4H PRN RECTAL Mild Pain (Pain Scale 1-3) 12/08/19 23:30 01/07/20 23:29 12/09/19 16:13 Ceftriaxone Sodium 1 gm/ Dextrose 55 ml @ 110 mls/hr Q24H IVPB 12/11/19 11:00 12/18/19 10:59 12/12/19 10:04 Chlorhexidine Gluconate (Kristine-Hex 2%) 1 applic DAILY@2000 TOPIC 12/09/19 20:00 03/08/20 19:59 12/11/19 20:13 Dextrose (Dextrose 50%) 25 ml Q30M PRN IV Hypoglycemia 12/09/19 06:15 03/08/20 06:14 Dextrose (Dextrose 50%) 50 ml Q30M PRN IV Hypoglycemia 12/09/19 06:15 03/08/20 06:14 Enoxaparin Sodium (Lovenox) 60 mg EVERY 12 HOURS SUBQ 12/09/19 09:00 03/08/20 08:59 12/12/19 08:20 Insulin Aspart (NovoLOG) Q4HR SUBQ 12/09/19 13:00 03/08/20 06:29 12/12/19 08:42 Insulin Detemir (Levemir) 14 units EVERY 12 HOURS SUBQ 12/12/19 09:00 03/11/20 08:59 12/12/19 08:42 Midazolam HCl 100 ml @ 0 mls/hr Q24H PRN IV Agitation 12/09/19 12:30 12/16/19 12:29 12/12/19 08:22 Morphine Sulfate (Morphine Sulfate) 2 mg Q4H PRN IVP For Pain 12/10/19 15:15 12/17/19 15:14 12/12/19 08:43 Norepinephrine Bitartrate 16 mg/ Sodium Chloride 500 ml @ 0 mls/hr Q24H IV 12/10/19 09:00 01/09/20 08:59 12/12/19 09:58 Remdesivir 100 mg/ Sodium Chloride 250 ml @ 250 mls/hr Q24H IV 12/12/19 13:00 12/20/19 13:59 Sodium Chloride 1,000 ml @ 75 mls/hr [id number] IV 12/11/19 11:00 01/10/20 10:59 12/12/19 00:54 Vancomycin HCl ([facility] pharmacy to dose) 1 ea DAILY PRN MISC Per rx protocol 12/08/19 18:30 01/07/20 18:29 Kristie Carty MD Dec 12, 2019 11:42
[2019-12-12] MEDS ORDERED: REMDESIVIR IV SCH (13:00)
[2019-12-12] MEDS ORDERED: [UNRECOGNIZED DRUG - OTHER] IV SCH (13:00)
--- NOTE | 2019-12-12 13:09 | NUR ---
STATISTICS INTERN NOTE Pt is obtunded and orally intubated. Per chart review, pt is from [place] [id number] [place] [place] [address]. There is no emergency contact. AGUS spoke mateusz Hernandes from [facility] [phone] that AGUS was in the meeting in this morning. AGUS attempted to call [facility] at 1:00pm and the call was not answered w/o vm option. AGUS will attempt later. Addendum: 12/12/19 at 1343 by MODESTA GOLDSMITH AGUS spoke AGUS Miller from [facility] [phone] that pt is self-responsible, no children/family and no emergency contact was provided.
--- NOTE | 2019-12-12 14:01 | NUR ---
NURSE NOTES: Held remdesivir 100mg IV, d/t renal function. Still waiting for ID 's approval. Will follow up.
[2019-12-12] MEDS ORDERED: Hydroxychloroquine Fact Sheet MISC ONE (15:15)
--- NOTE | 2019-12-12 15:22 | NUR ---
NURSE NOTES: ETT suction and oral suction given. Repositioned patient. Kept dry, clean, comfortable and HOB>30.
--- NOTE | 2019-12-12 15:40 | Surgery Progress Note ---
Surgery Progress Note Subjective Additional Comments acute leukocytosis labs noted exam unchanged ill appearing Objective Last 24 Hour Vital Signs Date Time Temp Pulse Resp B/P (MAP) Pulse Ox O2 Delivery O2 Flow Rate FiO2 12/12/19 14:00 134 34 89/57 (68) 79 12/12/19 13:30 131 24 88/38 (55) 79 12/12/19 13:00 130 29 87/54 (65) 79 12/12/19 13:00 87/54 12/12/19 13:00 29 87/54 Mechanical Ventilator 100 12/12/19 12:30 128 28 95/57 (70) 80 12/12/19 12:00 128 28 94/61 (72) 79 12/12/19 12:00 94/61 12/12/19 12:00 28 94/61 Mechanical Ventilator 100 12/12/19 12:00 128 12/12/19 12:00 100 12/12/19 12:00 Mechanical Ventilator 12/12/19 11:45 97/57 12/12/19 11:30 89/59 12/12/19 11:30 127 27 97/57 (70) 83 12/12/19 11:15 92/59 12/12/19 11:00 81/55 12/12/19 11:00 28 81/55 Mechanical Ventilator 100 12/12/19 11:00 127 22 89/59 (69) 86 12/12/19 10:53 126 31 80 12/12/19 10:30 128 26 107/64 (78) 82 12/12/19 10:30 92/61 12/12/19 10:15 107/64 12/12/19 10:00 125 25 105/78 (87) 84 12/12/19 10:00 105/78 12/12/19 10:00 29 105/78 Mechanical Ventilator 100 12/12/19 09:58 94/52 12/12/19 09:57 87/59 12/12/19 09:45 87/59 12/12/19 09:30 128 30 97/53 (68) 87 12/12/19 09:00 128 31 95/60 (72) 87 12/12/19 09:00 97/65 12/12/19 09:00 29 97/65 Mechanical Ventilator 100 12/12/19 08:30 97.6 135 36 99/14 (42) 76 12/12/19 08:22 35 95/59 Mechanical Ventilator 100 12/12/19 08:00 95/50 12/12/19 08:00 Mechanical Ventilator 12/12/19 08:00 132 12/12/19 08:00 131 35 102/55 (71) 78 12/12/19 08:00 100 12/12/19 07:30 128 34 92/54 (67) 85 12/12/19 07:00 126 38 96/48 (64) 94 12/12/19 07:00 96/48 12/12/19 06:36 128 36 80 12/12/19 06:30 127 35 12/12/19 06:30 127 35 77/60 (66) 86 12/12/19 06:30 77/60 12/12/19 06:15 129 35 84/56 (65) 87 12/12/19 06:06 129 36 91/70 (77) 86 12/12/19 06:00 79/56 12/12/19 06:00 130 37 79/56 (64) 91 12/12/19 05:30 128 34 95/66 (76) 89 12/12/19 05:00 123 35 91/40 (57) 95 12/12/19 05:00 91/40 12/12/19 04:30 123 35 92/68 (76) 91 12/12/19 04:15 121 33 92/61 (71) 93 12/12/19 04:00 98.9 117 35 99/79 (86) 95 12/12/19 04:00 99/79 12/12/19 04:00 Mechanical Ventilator 12/12/19 04:00 100 12/12/19 03:47 117 36 83/63 (70) 97 12/12/19 03:45 77/56 12/12/19 03:45 117 32 77/56 (63) 95 12/12/19 03:30 117 32 94/66 (75) 97 12/12/19 03:30 117 34 80 12/12/19 03:00 115 12/12/19 03:00 93/57 12/12/19 03:00 116 33 93/57 (69) 97 12/12/19 02:30 115 32 89/62 (71) 98 12/12/19 02:00 113 32 99/64 (76) 97 12/12/19 02:00 99/64 12/12/19 01:30 113 34 88/62 (71) 98 12/12/19 01:00 113 31 98/63 (75) 98 12/12/19 01:00 98/63 12/12/19 00:30 113 32 98/61 (73) 97 12/12/19 00:00 100 12/12/19 00:00 Mechanical Ventilator 12/12/19 00:00 94/65 12/12/19 00:00 99.6 114 31 94/65 (75) 98 12/11/19 23:45 114 12/11/19 23:30 115 32 84/60 (68) 98 12/11/19 23:00 118 26 92/57 (69) 97 12/11/19 23:00 92/57 12/11/19 22:57 117 31 80 12/11/19 22:45 116 32 91/61 (71) 98 12/11/19 22:39 99/59 12/11/19 22:30 117 34 96/63 (74) 98 12/11/19 22:15 118 32 99/59 (72) 99 12/11/19 22:00 118 31 93/65 (74) 98 12/11/19 22:00 93/65 12/11/19 21:45 118 32 95/53 (67) 98 12/11/19 21:30 118 32 101/63 (76) 97 12/11/19 21:15 118 35 100/64 (76) 96 12/11/19 21:00 107/56 12/11/19 21:00 120 34 107/56 (73) 86 12/11/19 20:45 121 37 115/64 (81) 82 12/11/19 20:30 119 33 76/47 (57) 86 12/11/19 20:15 110 30 87/60 (69) 96 12/11/19 20:00 Mechanical Ventilator 12/11/19 20:00 99.9 111 29 87/67 (74) 95 12/11/19 20:00 87/67 12/11/19 20:00 100 12/11/19 20:00 115 12/11/19 19:45 113 29 95/48 (64) 93 12/11/19 19:30 115 35 90/49 (63) 91 12/11/19 19:15 117 28 96/50 (65) 93 12/11/19 19:03 131 36 80 12/11/19 19:00 90/45 12/11/19 19:00 130 36 86/42 (57) 98 12/11/19 18:45 122 37 81/43 (56) 94 12/11/19 18:30 109 36 88/46 (60) 90 12/11/19 18:15 105 26 82/44 (57) 93 12/11/19 18:00 106/51 12/11/19 18:00 106 33 100/57 (71) 90 12/11/19 17:00 98.2 105 32 110/56 (74) 90 12/11/19 17:00 97/56 12/11/19 16:00 103 12/11/19 16:00 Mechanical Ventilator 12/11/19 16:00 105/53 12/11/19 16:00 70 12/11/19 16:00 103 32 105/53 (70) 90 I&O Intake and Output 12/11/19 12/12/19 19:00 07:00 Intake Total 2375.083 ml 1679.82 ml Output Total 0 ml 0 ml Balance 2375.083 ml 1679.82 ml Intake Free Water 120 ml 40 ml IV Total 2235.083 ml 1384.82 ml Tube Feeding 20 ml 255 ml Output Urine Total 0 ml 0 ml Dressing: other Wound: other Drains: other Cardiovascular: RSR Respiratory: decreased breath sounds Abdomen: soft, present bowel sounds Extremities: no cyanosis Laboratory Tests Test 12/11/19 19:50 12/12/19 03:20 12/12/19 09:06 Sodium Level 141 MMOL/L (136-145) 139 MMOL/L (136-145) Potassium Level 4.6 MMOL/L (3.5-5.1) 4.3 MMOL/L (3.5-5.1) Chloride Level 107 MMOL/L (98-107) 107 MMOL/L (98-107) Carbon Dioxide Level 16 MMOL/L (21-32) L 15 MMOL/L (21-32) L Anion Gap 18 mmol/L (5-15) H 17 mmol/L (5-15) H Blood Urea Nitrogen 43 mg/dL (7-18) H 45 mg/dL (7-18) H Creatinine 5.4 MG/DL (0.55-1.30) H 5.7 MG/DL (0.55-1.30) H Estimat Glomerular Filtration Rate 11.2 mL/min (>60) 10.5 mL/min (>60) Glucose Level 183 MG/DL (74-106) H 151 MG/DL (74-106) H Calcium Level 7.5 MG/DL (8.5-10.1) L 7.5 MG/DL (8.5-10.1) L White Blood Count 34.6 K/UL (4.8-10.8) #*H Red Blood Count 5.38 M/UL (4.70-6.10) Hemoglobin 14.9 G/DL (14.2-18.0) # Hematocrit 43.6 % (42.0-52.0) Mean Corpuscular Volume 81 FL (80-99) Mean Corpuscular Hemoglobin 27.7 PG (27.0-31.0) Mean Corpuscular Hemoglobin Concent 34.2 G/DL (32.0-36.0) Red Cell Distribution Width 13.7 % (11.6-14.8) Platelet Count 346 K/UL (150-450) # Mean Platelet Volume 5.7 FL (6.5-10.1) L Neutrophils (%) (Auto) % (45.0-75.0) Lymphocytes (%) (Auto) % (20.0-45.0) Monocytes (%) (Auto) % (1.0-10.0) Eosinophils (%) (Auto) % (0.0-3.0) Basophils (%) (Auto) % (0.0-2.0) Differential Total Cells Counted 100 Neutrophils % (Manual) 86 % (45-75) H Lymphocytes % (Manual) 3 % (20-45) L Monocytes % (Manual) 7 % (1-10) Eosinophils % (Manual) 1 % (0-3) Basophils % (Manual) 0 % (0-2) Band Neutrophils 3 % (0-8) Platelet Estimate Adequate Platelet Morphology Normal Red Blood Cell Morphology Normal Phosphorus Level 2.3 MG/DL (2.5-4.9) L Magnesium Level 1.9 MG/DL (1.8-2.4) Total Bilirubin 1.3 MG/DL (0.2-1.0) H Direct Bilirubin 1.0 MG/DL (0.0-0.3) H Aspartate Amino Transf (AST/SGOT) 35 U/L (15-37) Alanine Aminotransferase (ALT/SGPT) 28 U/L (12-78) Alkaline Phosphatase 396 U/L (46-116) H Troponin I 0.164 ng/mL (0.000-0.056) Total Protein 5.9 G/DL (6.4-8.2) L Albumin 1.2 G/DL (3.4-5.0) L Globulin 4.7 g/dL Albumin/Globulin Ratio 0.3 (1.0-2.7) L Random Vancomycin Level 27.5 ug/mL Arterial Blood pH 7.146 (7.350-7.450) Arterial Blood Partial Pressure CO2 37.7 mmHg (35.0-45.0) Arterial Blood Partial Pressure O2 50.6 mmHg (75.0-100.0) L Arterial Blood HCO3 12.7 mmol/L (22.0-26.0) *L Arterial Blood Oxygen Saturation 85.2 % (95-100) *L Arterial Blood Base Excess -15.4 (-2-2) *L Colby Test Positive Plan Problems: (1) COVID-19 Assessment & Plan: 1. Stable endotracheal tube from the exam earlier today ( in a satisfactory position). 2. Stable bilateral airspace disease left more dense and confluent than right and involving the upper lobe and lower lobe. 3. No worsening cardiopulmonary disease to include absence of interval pneumothorax. 4. No other significant interval changes. Appreciate ICU and Pulm team. Wean vent as tolerated. Antibiotics per infectious disease We will follow with recommendations (2) Respiratory failure Assessment & Plan: DAILY ESTIMATED NEEDS: Needs based on Critical care, obese, wounds 11-14 kcals/kg [id number] total kcals 1.25-2 ABW 86.3 g protein/kg 108-173 g total protein Fluid per MD NUTRITION DIAGNOSIS: Swallowing difficulty r/t respiratory failure as evidenced by pt intubated, on pressors. ENTERAL NUTRITION RECOMMENDATIONS: Glucerna 1.5 -> trophic feeds while on NE If Glucerna 1.5 is OOS, rec to substitute w/ Vital AF 1.2 @5-10ml/hr. - As medically able obtain GI access, initiate trophic feeds of Glucerna 1.5 (5-10ml/hr) to maintain gut integrity. Pt not stable for goal feeds at this time. - Flush per MD, HOB over 30 degrees w/ feeds. (-> When stable-> rec goal of 50ml/hr x24 hrs to provide 1200ml, 1800 kcal, 99g pro, 911ml free H2O.) ------ ADDITIONAL RECOMMENDATIONS: 1) F/up w/ WOUND CARE eval; NPO at this time 2) Maintain calibrated bed scale wts (3) Scrotal abscess Assessment & Plan: 54-year-old male identified to have a scrotal abscess. When evaluated bedside it had spontaneously draining purulent drainage coming out of it. His scrotum has cellulitis and erythema. This does not seem to be Olive's gangrene. Spontaneously draining scrotal abscess likely from positioning and hygiene. Now spontaneously draining no further I&D needed. Purulent fluid manipulated out in wound bed okay. Dressings applied. Care instructions given. Will monitor closely in the event that this worsens or will require further intervention. Thank you for let me participate in patient' s care prognosis Celestine Robles Dec 12, 2019 15:40
--- NOTE | 2019-12-12 17:05 | NUR ---
NURSE NOTES: Informed Dr. Tian that patient's o2 sat has been 70-80s all day. No new order at this time. Keep same vent setting AC 28, VT 650, FiO2 100% and Peep 15.
--- NOTE | 2019-12-12 18:04 | NUR ---
NURSE NOTES: Patient went grace to asystole. Called code yvonne. See code blue sheet.
--- NOTE | 2019-12-12 18:14 | NUR ---
NURSE NOTES: ER doctor announced @ 181.
--- NOTE | 2019-12-12 18:35 | NUR ---
NURSE NOTES: Notified Dr. Butt.
--- NOTE | 2019-12-12 18:40 | NUR ---
NURSE NOTES: Postmortem care given.
--- NOTE | 2019-12-12 18:44 | NUR ---
NURSE NOTES: Dr. Tian made aware.
--- NOTE | 2019-12-12 18:50 | NUR ---
NURSE NOTES: Charge nurse called [facility] and coronary case.
--- NOTE | 2019-12-12 18:56 | Emergency Room Report ---
Physical Exam Vital Signs Date Time Temp Pulse Resp B/P (MAP) Pulse Ox O2 Delivery O2 Flow Rate FiO2 12/08/19 11:50 97.5 132 35 205/108 (140) 87 Non-Rebreather 15.0 12/08/19 11:55 100 Medical Decision Making Diagnostic Impression: Primary Impression: Respiratory failure Additional Impressions: COVID-19 elevated toponin Cardiopulmonary arrest ER Course I was alerted to a CODE BLUE in the ICU for patient who is Covid 19+ previously intubated on pressors. Code called at 604 pm. when I arrived CPR was in progress. Code was initiated because patient went into asystole. Patient was given a total of 3 A of epi and 1 amp of sodium bicarb. Patient remained in asystole throughout the CODE BLUE. Patient had fixed dilated pupils no palpable pulse and no spontaneous respirations. Patient was pronounced at 6:15 PM. Last Vital Signs Date Time Temp Pulse Resp B/P (MAP) Pulse Ox O2 Delivery O2 Flow Rate FiO2 12/12/19 14:49 119 32 80 12/12/19 14:00 89/57 (68) 79 12/12/19 13:00 Mechanical Ventilator 12/12/19 08:30 97.6 12/09/19 01:31 7.0 Disposition: Condition: Critical Referrals: ANYA CHRISTIAN (PCP) Yue Thomas M.D. Dec 12, 2019 18:56
--- NOTE | 2019-12-12 19:05 | NUR ---
HAND-OFF: Report given to RACHELL Suero.
--- NOTE | 2019-12-12 19:35 | NUR ---
NURSE NOTES: Called [facility] and BretRN/Nursing Medical Claims Assistant made aware of .
[2019-12-12] MEDS ORDERED: Sodium Bicarbonate 8.4% 50ml Inj ONE (19:42)
[2019-12-12] MEDS ORDERED: NS 275ml ONE ×2 (19:42)
[2019-12-12] MEDS ORDERED: D5W 550ml IV ONE (19:42)
[2019-12-12] MEDS ORDERED: Naloxone 1mg/ml 2ml ONE (19:42)
[2019-12-12] MEDS ORDERED: Atropine Inj 1mg/10ml Syr ONE (19:42)
[2019-12-12] MEDS ORDERED: Tubing IV Secondary IV ONE (19:42)
--- NOTE | 2019-12-14 08:02 | Discharge Summary ---
Discharge Summary Discharge Summary _ SUMMARY DATE OF ADMISSION: 12/08/2019 DATE OF EXPIRATION: 12/12/2019 REASON FOR ADMISSION: 54 years old male with past medical history of paraplegia, DM type2,, confirmed COVID-19 infection, [facility] of [facility] , was sent for evaluation due to shortness of breath. Patient had cough and congestion. Upon evaluation blood pressure was 205/108 , patient was tachycardic , tachypneic , and hypoxic, requiring 100% nonrebreathing mask and still saturating poorly. He ultimately was intubated and placed on mechanical ventilator . CONSULTANTS: pulmonary Dr. Tian ID specialist Dr. Carty surgery Dr. Omer [facility]: Patient was in ICU. Ventilator support and pulmonary toilet provided. Patient noted to be hypotensive and required start of pressors , despite IV fluid boluses. Hemodynamic status was closely monitored with goal to keep mean arterial blood pressure above 65. Empiric antibiotics provided as per ID specialist recommendations. Blood culture revealed Staph coagulase negative , 1 out of 2. SARS COV 2 on 12/07 was detected. Urine culture revealed E. coli. Patient remained in 100 % FiO2 . PEEP was increased to 15. Chest x-ray picture was consistent with bilateral infiltrates, unchanged. Patient started on Remdesivir and Plaquenil. Full anticoagulation was initiated in the setting of COVID Blood sugar was managed with long-acting insulin and sliding scale of insulin as needed. Patient demonstrated multiple organ failure. Noted elevated troponin on 3 different occasions. Patient started on anticoagulation. Patient showed evidence of renal failure. Renal parameters and electrolytes were closely monitored. nephrotoxics were avoided as possible. Patient demonstrated significant acidosis , attempted to be corrected with bicarbonate. Unfortunately despite IV hydration. creatinine trended up from 2.3 to 5.7 Chest x-ray was unchanged, indicating findings consistent with probable acute respiratory distress syndrome. Patient remained profoundly hypoxemic on 100% FiO2 with PEEP 15. Patient was continued on pressors. Patient remained very ill and critical. Surgeon seen patient for scrotal abscess, unlikely to be a Olive's gangrene. Scrotal abscess was spontaneously draining and likely was from positioning and hygiene. No further I&D was require. Wound care provided. On 12/11 leukocytosis up to 34.6 ; patient had intermittent fevers. CODE BLUE since patient went to asystole. ACLS protocol initiated. Unfortunately patient remained in asystole throughout the CODE BLUE. Patient subsequently was pronounced at 6:15 PM 12/12/2019 . Cause of : cardiopulmonary arrest likely from COVID-19 pneumonia with multiply organ failure. FINAL DIAGNOSES: Status post cardiopulmonary arrest Acute hypoxemic respiratory failure requiring intubation Confirmed COVID-19 infection COVID-19 pneumonia Possible ARDS Sepsis Shock Multiorgan system failure UTI with E. coli Type 2 diabetes mellitus with hyperglycemia Metabolic acidosis Electrolyte imbalance Acute on chronic renal failure Acute myocardial ischemia Possible NSTEMI Scrotal cellulitis Acute diastolic congestive heart failure Lactic acidosis Severe protein calorie malnutrition Paraplegia I have been assigned to dictate discharge summary for this account. I was not involved in the patient's management. Tiki De Oliveira NP Dec 14, 2019 08:02
== END 2019-12-12 19:43 | disposition expired | DRG 720 ==
LOC: EDBD 11:55 → EMR 12:47 → 2W 13:03 → EDBEDREQ 13:07 → ICU 23:23
PROC: 5A1955Z Respiratory Ventilation, Greater than 96 Consecutive Hours (ICD-10-PCS; principal; 2019-12-08)
PROC: 0BH17EZ Insertion of Endotracheal Airway into Trachea, Via Natural or Artificial Opening (ICD-10-PCS; 2019-12-08)
DX: A41.89 Other specified sepsis (principal); U07.1 COVID-19; J80 Acute respiratory distress syndrome; I21.4 Non-ST elevation (NSTEMI) myocardial infarction; N17.0 Acute kidney failure with tubular necrosis; R65.21 Severe sepsis with septic shock; G82.20 Paraplegia, unspecified; E11.65 Type 2 diabetes mellitus with hyperglycemia; E87.1 Hypo-osmolality and hyponatremia; J12.89 Other viral pneumonia; E87.5 Hyperkalemia; I50.31 Acute diastolic (congestive) heart failure; E11.10 Type 2 diabetes mellitus with ketoacidosis without coma; E11.22 Type 2 diabetes mellitus with diabetic chronic kidney disease; N18.9 Chronic kidney disease, unspecified; E43 Unspecified severe protein-calorie malnutrition; N39.0 Urinary tract infection, site not specified; Z79.4 Long term (current) use of insulin; B96.20 Unspecified Escherichia coli [E. coli] as the cause of diseases classified elsewhere; E83.42 Hypomagnesemia; E66.01 Morbid (severe) obesity due to excess calories; N49.2 Inflammatory disorders of scrotum; Z68.41 Body mass index [BMI] 40.0-44.9, adult
CPT/HCPCS: 36415; 36600; 71045; 74018; 80048; 80053; 80202; 81003; 82248; 82550; 82553; 82803; 82962; 83036; 83605; 83690; 83735; 83880; 84100; 84478; 84484; 85007; 85025; 85610; 85730; 87040; 87070; 87081; 87086; 87181; 87205; 93005; 94002; 94003; 94664; 96361; 96365; 96367; 96375; 99285; J0171; J1815; J2310; J7030; J7620; S5561